=== PATIENT | female | born 1965 | race Caucasian/White ===

== ENCOUNTER 2017-04-13 17:58 | Emergency (ER) | payer BC, OTHER ==
[2017-04-13 18:10] VITALS: TEMP 97.6
[2017-04-13] MEDS ORDERED: ONDANSETRON 4 MG/2 ML VIAL IVP STA (18:16)
[2017-04-13] MEDS ORDERED: SODIUM CHLORIDE 0.9% 1,000 ML IV STA (18:16)
[2017-04-13] MEDS ORDERED: RX INFO: IV CONTRAST WAS GIVEN 1 EACH MISC MISCELLANE PRN (18:16)
[2017-04-13] MEDS ORDERED: HYDROmorphone 1 MG/ML 1 ML SYRINGE IVP STA (18:16)
--- NOTE | 2017-04-13 18:40 | ED ---
General Adult HPI - General Chief complaint: Abdominal Pain Stated complaint: Vomiting Time Seen by Provider: 04/13/17 18:11 Source: patient, RN notes reviewed Mode of arrival: ambulatory Limitations: no limitations - History of Present Illness Initial comments: 51 yo female presents to the ER with cc of left sided abdominal pain x 5 days. Patient has history of diverticulitis. She states this started with abdominal pain is slowly got worse with nausea vomiting. She states that she has not had any diarrhea. She denies any blood in the stool or vomit. There is been no fever chills. Patient states that she did have surgery last time. Happened so she thought that she should be evaluated. They were concerned due to the patient's continued pain so they thought that they should be evaluated. Patient denies any recent fever, chills, shortness of breath, chest pain, back pain, numbness or tingling, dysuria or hematuria, constipation or diarrhea, headaches or visual changes, or any other current symptoms. - Related Data Home Medications Medication Instructions Recorded Confirmed Furosemide [Lasix] 20 mg PO DAILY 04/13/17 04/13/17 Gabapentin [Neurontin] 300 mg PO TID 04/13/17 04/13/17 Ibuprofen [Motrin] 600 mg PO Q8HR PRN 04/13/17 04/13/17 Previous Rx's Medication Instructions Recorded Ciprofloxacin HCl [Cipro] 500 mg PO Q12HR #14 tablet 04/13/17 Ondansetron Odt [Zofran ODT] 4 mg PO Q8HR PRN #20 tab 04/13/17 metroNIDAZOLE [Flagyl] 500 mg PO TID #21 tab 04/13/17 Allergies Allergy/AdvReac Type Severity Reaction Status Date / Time codeine Allergy Unknown Verified 04/13/17 19:05 Iodinated Contrast- Oral and Allergy Dyspnea Verified 04/13/17 20:55 IV Dye levetiracetam [From Keppra] Allergy Unknown Verified 04/13/17 19:05 morphine Allergy Unknown Verified 04/13/17 19:05 tramadol Allergy Unknown Verified 04/13/17 19:05 tape Allergy Unknown Uncoded 04/13/17 18:13 Review of Systems ROS Statement: Those systems with pertinent positive or pertinent negative responses have been documented in the HPI. ROS Other: All systems not noted in ROS Statement are negative. Past Medical History Past Medical History: Asthma, Seizure Disorder Additional Past Medical History / Comment(s): diverticulitis, gilberts syndrome , osteoprosis History of Any Multi-Drug Resistant Organisms: None Reported Past Surgical History: Section, Cholecystectomy, Tonsillectomy Additional Past Surgical History / Comment(s): eyes, diversticulitis Past Psychological History: Depression Smoking Status: Never smoker Past Alcohol Use History: None Reported Past Drug Use History: None Reported General Exam - General Exam Comments Initial Comments: General: The patient is awake and alert, in no distress, and does not appear acutely ill. Eye: Pupils are equal, round and reactive to light, extra-ocular movements are intact; there is normal conjunctiva bilaterally. No signs of icterus. Ears, nose, mouth and throat: There are moist mucous membranes and no oral lesions. Neck: The neck is supple, there is no tenderness. Cardiovascular: There is a regular rate and rhythm. No murmur, rub or gallop is appreciated. Respiratory: Lungs are clear to auscultation, respirations are non-labored, breath sounds are equal. No wheezes, stridor, rales, or rhonchi. Gastrointestinal: Soft, non-distended, tenderness to left side of the abdomen without masses or organomegaly noted. There is no rebound or guarding present. No CVA tenderness. Bowel sounds are unremarkable. Back: There is no tenderness to palpation in the midline. There is no obvious deformity. No rashes noted. Musculoskeletal: Normal ROM, no tenderness, There is no pedal edema. There is no calf tenderness or swelling. Sensation intact. Pulses equal bilaterally 2+. Neurological: CN II-XII intact, There are no obvious motor or sensory deficits. Coordination appears grossly intact. Speech is normal. Skin: Skin is warm and dry and no rashes or lesions are noted. Psychiatric: Cooperative, appropriate mood & affect, normal judgment. Limitations: no limitations Course Vital Signs 04/13/17 04/13/17 04/13/17 18:06 19:09 19:56 Temperature 97.6 F Pulse Rate 105 H 60 60 Respiratory 20 18 18 Rate Blood Pressure 127/89 139/66 150/83 O2 Sat by Pulse 97 96 97 Oximetry 04/13/17 20:36 Temperature Pulse Rate 70 Respiratory 18 Rate Blood Pressure 139/72 O2 Sat by Pulse 98 Oximetry - Reevaluation(s) Reevaluation #1: 04/13/17 19:51 Patient evaluated in the room. At this time there is concern for possible contrast ALLERGY. At this time we did give him Benadryl Solu-Medrol Pepcid. Patient in full sentences with me sitting up. Medical Decision Making - Medical Decision Making 51-year-old female presents emergency Department chief complaint abdominal pain. This and patient's lab work and CAT scan reviewed and negative. This time due to her history we will start her on Cipro as well as nausea medication. We discussed Motrin Tylenol for pain. We did watch her following her ALLERGIC reaction she is doing better. All questions have been answered. - Lab Data Result diagrams: 04/13/17 18:33 04/13/17 18:33 Lab Results 04/13/17 04/13/17 04/13/17 Range/Units 02:32 18:33 18:33 WBC 6.2 (3.8-10.6) k/uL RBC 5.09 (3.80-5.40) m/uL Hgb 14.7 (11.4-16.0) gm/dL Hct 44.0 (34.0-46.0) % MCV 86.5 (80.0-100.0) fL MCH 28.8 (25.0-35.0) pg MCHC 33.3 (31.0-37.0) g/dL RDW 14.4 (11.5-15.5) % Plt Count 231 (150-450) k/uL Neutrophils % 66 % Lymphocytes % 26 % Monocytes % 5 % Eosinophils % 1 % Basophils % 1 % Neutrophils # 4.1 (1.3-7.7) k/uL Lymphocytes # 1.6 (1.0-4.8) k/uL Monocytes # 0.3 (0-1.0) k/uL Eosinophils # 0.0 (0-0.7) k/uL Basophils # 0.0 (0-0.2) k/uL PT (9.0-12.0) sec INR (<1.2) APTT (22.0-30.0) sec Sodium 139 (137-145) mmol/L Potassium 3.7 (3.5-5.1) mmol/L Chloride 101 (98-107) mmol/L Carbon Dioxide 26 (22-30) mmol/L Anion Gap 12 mmol/L BUN 24 H (7-17) mg/dL Creatinine 0.90 (0.52-1.04) mg/dL Est GFR (MDRD) Af Amer >60 (>60 ml/min/1.73 sqM) Est GFR (MDRD) Non-Af >60 (>60 ml/min/1.73 sqM) Glucose 115 H (74-99) mg/dL Plasma Lactic Acid Germán (0.7-2.0) mmol/L Calcium 9.3 (8.4-10.2) mg/dL Total Bilirubin 1.2 (0.2-1.3) mg/dL AST 35 (14-36) U/L ALT 55 H (9-52) U/L Alkaline Phosphatase 104 (38-126) U/L Total Protein 7.8 (6.3-8.2) g/dL Albumin 4.4 (3.5-5.0) g/dL Amylase 51 (30-110) U/L Lipase 52 (23-300) U/L Urine Color Light Yellow Urine Appearance Clear (Clear) Urine pH 6.5 (5.0-8.0) Ur Specific [place] >1.050 H (1.001-1.035) Urine Protein Trace H (Negative) Urine Glucose (UA) Negative (Negative) Urine Ketones 1+ H (Negative) Urine Blood Negative (Negative) Urine Nitrite Negative (Negative) Urine Bilirubin Negative (Negative) Urine Urobilinogen <2.0 (<2.0) mg/dL Ur Leukocyte Esterase Negative (Negative) 04/13/17 04/13/17 Range/Units 18:33 18:33 WBC (3.8-10.6) k/uL RBC (3.80-5.40) m/uL Hgb (11.4-16.0) gm/dL Hct (34.0-46.0) % MCV (80.0-100.0) fL MCH (25.0-35.0) pg MCHC (31.0-37.0) g/dL RDW (11.5-15.5) % Plt Count (150-450) k/uL Neutrophils % % Lymphocytes % % Monocytes % % Eosinophils % % Basophils % % Neutrophils # (1.3-7.7) k/uL Lymphocytes # (1.0-4.8) k/uL Monocytes # (0-1.0) k/uL Eosinophils # (0-0.7) k/uL Basophils # (0-0.2) k/uL PT 9.6 (9.0-12.0) sec INR 1.0 (<1.2) APTT 24.4 (22.0-30.0) sec Sodium (137-145) mmol/L Potassium (3.5-5.1) mmol/L Chloride (98-107) mmol/L Carbon Dioxide (22-30) mmol/L Anion Gap mmol/L BUN (7-17) mg/dL Creatinine (0.52-1.04) mg/dL Est GFR (MDRD) Af Amer (>60 ml/min/1.73 sqM) Est GFR (MDRD) Non-Af (>60 ml/min/1.73 sqM) Glucose (74-99) mg/dL Plasma Lactic Acid Germán 1.0 (0.7-2.0) mmol/L Calcium (8.4-10.2) mg/dL Total Bilirubin (0.2-1.3) mg/dL AST (14-36) U/L ALT (9-52) U/L Alkaline Phosphatase (38-126) U/L Total Protein (6.3-8.2) g/dL Albumin (3.5-5.0) g/dL Amylase (30-110) U/L Lipase (23-300) U/L Urine Color Urine Appearance (Clear) Urine pH (5.0-8.0) Ur Specific [place] (1.001-1.035) Urine Protein (Negative) Urine Glucose (UA) (Negative) Urine Ketones (Negative) Urine Blood (Negative) Urine Nitrite (Negative) Urine Bilirubin (Negative) Urine Urobilinogen (<2.0) mg/dL Ur Leukocyte Esterase (Negative) - Radiology Data Radiology results: report reviewed, image reviewed Disposition Clinical Impression: LLQ abdominal pain Disposition: HOME SELF-CARE Condition: Stable Instructions: Abdominal Pain (ED) Additional Instructions: Please use medication as discussed. Please follow up with family doctor if symptoms have not improved over the next two days. Please return to the emergency room if your symptoms increase or worsen or for any other concerns. Prescriptions: Ciprofloxacin HCl [Cipro] 500 mg PO Q12HR #14 tablet metroNIDAZOLE [Flagyl] 500 mg PO TID #21 tab Ondansetron Odt [Zofran ODT] 4 mg PO Q8HR PRN #20 tab PRN Reason: Nausea Referrals: Brian Giang MD [Primary Care Provider] - 1-2 days Time of Disposition: 21:13
[2017-04-13 18:44] LABS: Basophils % (A) 1 %; Eosinophils % (A) 1 %; HGB 14.7 gm/dL (11.4-16.0); Lymphocytes # (A) 1.6 k/uL (1.0-4.8); Lymphocytes % (A) 26 %; MCH 28.8 pg (25.0-35.0); MCHC 33.3 g/dL (31.0-37.0); MCV 86.5 fL (80.0-100.0); Mean Platelet Volume 8.2; Monocytes # (A) 0.3 k/uL (0-1.0); Monocytes % (A) 5 %; Neutrophils # (A) 4.1 k/uL (1.3-7.7); Neutrophils % (A) 66 %; Platelet Count 231 k/uL (150-450); RBC 5.09 m/uL (3.80-5.40); RDW 14.4 % (11.5-15.5); WBC 6.2 k/uL (3.8-10.6)
[2017-04-13 18:54] LABS: ALT 55 U/L (9-52); AST 35 U/L (14-36); Albumin 4.4 g/dL (3.5-5.0); Alkaline Phosphatase 104 U/L (38-126); Amylase 51 U/L (30-110); Anion Gap 12 mmol/L; Blood Urea Nitrogen 24 mg/dL (7-17); Calcium 9.3 mg/dL (8.4-10.2); Carbon Dioxide 26 mmol/L (22-30); Chloride 101 mmol/L (98-107); Glucose 115 mg/dL (74-99); Lipase 52 U/L (23-300); Potassium 3.7 mmol/L (3.5-5.1); Sodium 139 mmol/L (137-145); Total Bilirubin 1.2 mg/dL (0.2-1.3); Total Protein 7.8 g/dL (6.3-8.2)
[2017-04-13 19:12] VITALS: RESP 18
[2017-04-13 19:34] LABS: Partial Thromboplastin Time 24.4 sec (22.0-30.0); Prothrombin Time 9.6 sec (9.0-12.0)
[2017-04-13] MEDS ORDERED: methylPREDNISolone SOD SUCCI 125 MG/2 ML VIAL IV STA (19:50)
[2017-04-13] MEDS ORDERED: FAMOTIDINE 20 MG/2 ML VIAL IV STA (19:50)
[2017-04-13] MEDS ORDERED: diphenhydrAMINE 50 MG/ML 1 ML VIAL IVP STA (19:50)
--- NOTE | 2017-04-13 19:50 | CT ---
EXAMINATION TYPE: CT abdomen pelvis w con DATE OF EXAM: 04/13/2017 COMPARISON: NONE HISTORY: Generalized pain with vomiting for [address] DLP: 634 mGycm Automated exposure control for dose reduction was used. TECHNIQUE: Helical acquisition of images was performed from the lung bases through the pelvis. CONTRAST: Performed without Oral Contrast and with IV Contrast, patient injected with 100 mL of Omnipaque 300. FINDINGS: Lung bases are clear. There is no pleural effusion. Heart size is normal. Liver spleen pancreas appear normal. There are clips from cholecystectomy. Bile ducts are not dilated . There is no adrenal mass. Kidneys show satisfactory contrast opacification. There is no hydronephrosi s. There is no ascites. There is no retroperitoneal adenopathy. I see no intestinal wall thickening. There are no dilated loops. Bladder distends smoothly. There is no free fluid in the pelvis. I see no bony destructive process. There is no evidence of a pelvic mass. IMPRESSION: NEGATIVE CT SCAN OF THE ABDOMEN AND PELVIS. I DO NOT SEE A CAUSE FOR ABDOMINAL PAIN. APPENDIX APPEARS NORMAL..
[2017-04-13 20:37] VITALS: BP 139/72; PULSE 70
[2017-04-13 20:44] LABS: Appearance,Urine Clear (Clear); Bilirubin,Urine Negative (Negative); Blood,Urine Negative (Negative); Color,Urine Light Yellow; Glucose,Urine (UA) Negative (Negative); Ketones,Urine 1+ (Negative); Leukocyte Esterase,Urine Negative (Negative); Nitrite,Urine Negative (Negative); PH, Urine 6.5 (5.0-8.0); Protein,Urine Trace (Negative); Urobilinogen,Urine <2.0 mg/dL (<2.0)
[2017-04-13 20:47] LABS: Specific Gravity,Urine >1.050 (1.001-1.035)
== END 2017-04-13 21:16 | disposition home or self-care (01) ==
LOC: EC 17:58
DX: R10.32 Left lower quadrant pain (principal); R11.2 Nausea with vomiting, unspecified; G40.909 Epilepsy, unspecified, not intractable, without status epilepticus; F32.9 Major depressive disorder, single episode, unspecified; Z79.899 Other long term (current) drug therapy; Z88.5 Allergy status to narcotic agent; Z91.041 Radiographic dye allergy status; Z91.048 Other nonmedicinal substance allergy status; Z88.8 Allergy status to other drugs, medicaments and biological substances; Z88.6 Allergy status to analgesic agent
CPT/HCPCS: 36415; 80053; 82150; 83605; 83690; 85025; 85610; 85730; 81003; 87040; 87086; 74177; 99284; 96374; 96375 ×4; 96361; J1200; J2930; J2405; J1170; Q9967

== ENCOUNTER 2017-05-25 14:28 | Observation (INO) | payer OTHER ==
[2017-05-25] MEDS ORDERED: IPRATROPIUM-ALBUTEROL 3 ML NEB INHALATION STA (15:03)
--- NOTE | 2017-05-25 15:09 | ED ---
General Adult HPI - General Source: patient Mode of arrival: ambulatory Limitations: no limitations <Jostin Brown - Last Filed: 05/25/17 17:05> <Lane Castañeda - Last Filed: 05/25/17 17:51> - General Chief complaint: Shortness of Breath Stated complaint: congestion/SOB Time Seen by Provider: 05/25/17 14:57 - History of Present Illness Initial comments: This is a 51 year old female who presents with congestion, cough and shortness of breath which began 2 weeks ago and is gradually worsening. She has a history of asthma that is not under any current treatment. The patient states she has been taking over the counter Tylenol Cold medicine, which provided no relief. She denies fevers, nausea, vomiting, diarrhea. (Jostin Brown) - Related Data Home Medications Medication Instructions Recorded Confirmed D-Methorphan/PE/Acetaminophen 1 each PO Q6H PRN 05/25/17 05/25/17 [Tylenol Cold Max Day Caplet] Allergies Allergy/AdvReac Type Severity Reaction Status Date / Time codeine Allergy Unknown Verified 05/25/17 15:14 Iodinated Contrast- Oral and Allergy Dyspnea Verified 05/25/17 15:14 IV Dye levetiracetam [From Kera] Allergy Unknown Verified 05/25/17 15:14 morphine Allergy Unknown Verified 05/25/17 15:14 tramadol Allergy Unknown Verified 05/25/17 15:14 tape Allergy Unknown Uncoded 05/25/17 14:34 Review of Systems ROS Other: All systems not noted in ROS Statement are negative. <Jostin Brown - Last Filed: 05/25/17 17:05> ROS Other: All systems not noted in ROS Statement are negative. <Lane Castañeda - Last Filed: 05/25/17 17:51> ROS Statement: Those systems with pertinent positive or pertinent negative responses have been documented in the HPI. Past Medical History Past Medical History: Asthma, Seizure Disorder Additional Past Medical History / Comment(s): diverticulitis, gilberts syndrome , osteoprosis History of Any Multi-Drug Resistant Organisms: None Reported Past Surgical History: Section, Cholecystectomy, Tonsillectomy Additional Past Surgical History / Comment(s): eyes, diversticulitis Past Psychological History: Depression Smoking Status: Never smoker Past Alcohol Use History: None Reported Past Drug Use History: None Reported <Jostin Brown - Last Filed: 05/25/17 17:05> General Exam Limitations: no limitations General appearance: alert, in no apparent distress Head exam: Present: atraumatic, normocephalic, normal inspection Eye exam: Present: normal appearance, PERRL, EOMI. Absent: scleral icterus, conjunctival injection, periorbital swelling Respiratory exam: Present: wheezes, rhonchi, other (expiratory wheezes and rhonchi auscultated bilaterally) Cardiovascular Exam: Present: regular rate, normal rhythm, normal heart sounds. Absent: systolic murmur, diastolic murmur, rubs, gallop, clicks GI/Abdominal exam: Present: soft, normal bowel sounds. Absent: distended, tenderness, guarding, rebound, rigid Back exam: Present: normal inspection Neurological exam: Present: alert, oriented X3, CN II-XII intact Psychiatric exam: Present: normal affect, normal mood Skin exam: Present: warm, dry, intact, normal color. Absent: rash <Jostin Brown - Last Filed: 05/25/17 17:05> Course <Jostin Brown - Last Filed: 05/25/17 17:05> <Lane Castañeda - Last Filed: 05/25/17 17:51> Vital Signs 05/25/17 05/25/17 05/25/17 14:32 15:37 15:50 Temperature 98.0 F Pulse Rate 60 60 64 Respiratory 20 Rate Blood Pressure 153/94 O2 Sat by Pulse 99 Oximetry 05/25/17 05/25/17 05/25/17 16:43 16:57 17:10 Temperature Pulse Rate 68 72 76 Respiratory 28 H Rate Blood Pressure 162/85 O2 Sat by Pulse 98 Oximetry - Reevaluation(s) Reevaluation #1: 05/25/17 17:50 Patient reevaluated by myself, Dr. Castañeda. Patient resting comfortably in bed. Patient has continued decreased air exchange and wheezing. Patient was updated on results and plan. Case was discussed in detail with Dr. Ludwig who did evaluate the patient and will admit for hospital call. Patient was updated. ( Lane Castañeda) Medical Decision Making - Lab Data Result diagrams: 05/25/17 16:08 05/25/17 16:08 <Jostin Brown - Last Filed: 05/25/17 17:05> - Lab Data Result diagrams: 05/25/17 16:08 05/25/17 16:08 <Lane Casatñeda - Last Filed: 05/25/17 17:51> - Medical Decision Making 51-year-old female presented for URI symptoms, shortness of breath. Patient's lab work, x-ray unremarkable patient's had multiple no denies treatments here in emergency department with no relief of her symptoms. She has continuation of wheezing and shortness of breath. Patient be admitted for IV steroids, every 2-4 hours breathing treatments. (Jostin Brown) - Lab Data Lab Results 05/25/17 05/25/17 05/25/17 Range/Units 16:08 16:08 16:08 WBC 4.5 (3.8-10.6) k/uL RBC 5.03 (3.80-5.40) m/uL Hgb 14.8 (11.4-16.0) gm/dL Hct 45.9 (34.0-46.0) % MCV 91.2 (80.0-100.0) fL MCH 29.5 (25.0-35.0) pg MCHC 32.3 (31.0-37.0) g/dL RDW 13.2 (11.5-15.5) % Plt Count 197 (150-450) k/uL Neutrophils % (Manual) 34 % Band Neutrophils % 1 % Lymphocytes % (Manual) 59 % Monocytes % (Manual) 3 % Eosinophils % (Manual) 3 % Neutrophils # (Manual) 1.50 (1.3-7.7) k/uL Lymphocytes # (Manual) 2.66 (1.0-4.8) k/uL Monocytes # (Manual) 0.14 (0-1.0) k/uL Eosinophils # (Manual) 0.14 (0-0.7) k/uL Nucleated RBCs 0 (0-0) /100 WBC Manual Slide Review Performed Sodium 143 (137-145) mmol/L Potassium 3.8 (3.5-5.1) mmol/L Chloride 107 (98-107) mmol/L Carbon Dioxide 23 (22-30) mmol/L Anion Gap 13 mmol/L BUN 17 (7-17) mg/dL Creatinine 0.80 (0.52-1.04) mg/dL Est GFR (MDRD) Af Amer >60 (>60 ml/min/1.73 sqM) Est GFR (MDRD) Non-Af >60 (>60 ml/min/1.73 sqM) Glucose 95 (74-99) mg/dL Calcium 9.5 (8.4-10.2) mg/dL Magnesium 2.2 (1.6-2.3) mg/dL Total Bilirubin 1.3 (0.2-1.3) mg/dL AST 37 H (14-36) U/L ALT 40 (9-52) U/L Alkaline Phosphatase 93 (38-126) U/L Total Protein 7.4 (6.3-8.2) g/dL Albumin 4.3 (3.5-5.0) g/dL Influenza Type A RNA Not Detected (Not Detectd) Influenza Type B (PCR) Not Detected (Not Detectd) Disposition <Jostin Brown - Last Filed: 05/25/17 17:05> <Lane Castañeda - Last Filed: 05/25/17 17:51> Clinical Impression: Acute asthma exacerbation, URI (upper respiratory infection) Disposition: ADMITTED IP TO THIS HOSP Condition: Fair Referrals: Brian Giang MD [Primary Care Provider] - 1-2 days
--- NOTE | 2017-05-25 15:42 | XR ---
EXAMINATION TYPE: XR chest 2V DATE OF EXAM: 05/25/2017 COMPARISON: NONE INDICATION: Cough, pain, short of breath x2 weeks TECHNIQUE: Frontal and lateral views of the chest are obtained. FINDINGS: The heart size is normal. The pulmonary vasculature is normal. The lungs are clear. IMPRESSION: 1. No acute pulmonary process.
[2017-05-25] MEDS ORDERED: methylPREDNISolone SOD SUCCI 125 MG/2 ML VIAL IV STA (15:56)
[2017-05-25 16:18] LABS: HCT 45.9 % (34.0-46.0); HGB 14.8 gm/dL (11.4-16.0); MCH 29.5 pg (25.0-35.0); MCHC 32.3 g/dL (31.0-37.0); MCV 91.2 fL (80.0-100.0); Mean Platelet Volume 7.3; Platelet Count 197 k/uL (150-450); RBC 5.03 m/uL (3.80-5.40); RDW 13.2 % (11.5-15.5); WBC 4.5 k/uL (3.8-10.6)
[2017-05-25] MEDS ORDERED: ALBUTEROL NEBULIZED 2.5 MG/3 ML INHALATION STA (16:25)
[2017-05-25 16:30] LABS: ALT 40 U/L (9-52); AST 37 U/L (14-36); Albumin 4.3 g/dL (3.5-5.0); Alkaline Phosphatase 93 U/L (38-126); Anion Gap 13 mmol/L; Blood Urea Nitrogen 17 mg/dL (7-17); Calcium 9.5 mg/dL (8.4-10.2); Carbon Dioxide 23 mmol/L (22-30); Chloride 107 mmol/L (98-107); Glucose 95 mg/dL (74-99); Magnesium 2.2 mg/dL (1.6-2.3); Potassium 3.8 mmol/L (3.5-5.1); Sodium 143 mmol/L (137-145); Total Bilirubin 1.3 mg/dL (0.2-1.3); Total Protein 7.4 g/dL (6.3-8.2)
[2017-05-25 16:35] LABS: Band Neutrophils % 1 %; Eosinophils # (M) 0.14 k/uL (0-0.7); Lymphocytes # (M) 2.66 k/uL (1.0-4.8); Monocytes # (M) 0.14 k/uL (0-1.0); Neutrophils % (M) 34 %; Nucleated Red Blood Cells 0 /100 WBC (0-0); Total Cells Counted 100
[2017-05-25] MEDS ORDERED: ACETAMINOPHEN TAB 325 MG TAB PO PRN (17:07)
[2017-05-25] MEDS: IPRATROPIUM-ALBUTEROL 3 ML NEB INHALATION SCH (19:40)
[2017-05-25 20:04] VITALS: BMI 27.7
[2017-05-25] MEDS: methylPREDNISolone SOD SUCCI 125 MG/2 ML VIAL IV SCH (21:39)
[2017-05-25] MEDS ORDERED: TEMAZEPAM 15 MG CAP PO PRN (22:38)
[2017-05-26] MEDS: IPRATROPIUM-ALBUTEROL 3 ML NEB INHALATION SCH ×4 (00:02→12:20)
[2017-05-26] MEDS: methylPREDNISolone SOD SUCCI 125 MG/2 ML VIAL IV SCH ×3 (01:01→12:16)
[2017-05-26 06:15] VITALS: BP 121/90; TEMP 97.1
[2017-05-26 06:25] LABS: Glucose,Whole Blood 128 mg/dL (75-99)
[2017-05-26 09:14] VITALS: RESP 14
[2017-05-26] MEDS ORDERED: LEVOFLOXACIN 500MG-D5W PMX 500 MG in DEXTROSE/WATER 1 100ML.BAG IVPB SCH (11:00)
[2017-05-26 12:16] LABS: Glucose,Whole Blood 188 mg/dL (75-99)
[2017-05-26] MEDS ORDERED: INSULIN ASPART 100 UNIT/ML 1 ML 10 ML VIAL SQ SCH (12:30)
[2017-05-26 13:41] VITALS: PULSE 84
[2017-05-26] MEDS ORDERED: PNEUMOCOCCAL VACC-PNEUMOVAX 23 25 MCG/0.5 ML VIAL IM ONE (14:14)
[2017-05-26 15:44] LABS: Hemoglobin A1C 5.1 % (4.0-6.0)
[2017-05-26] MEDS ORDERED: SYMBICORT 160-4.5 MCG INHALER INHALATION SCH (20:00)
[2017-05-26] MEDS ORDERED: HEPARIN SODIUM,PORCINE 5,000 UNIT/ML 1 ML VIAL SQ SCH (21:00)
--- NOTE | 2017-05-27 05:21 | HP ---
HISTORY AND PHYSICAL DATE OF SERVICE: 05/25/2017 CHIEF COMPLAINT: Shortness of breath. HISTORY OF PRESENT ILLNESS: This 51-year-old woman with a past medical history of multiple medical problems including asthma, fibromyalgia, seizure disorder, diverticulitis, Gilbert's syndrome being followed by Dr. Morley in the outpatient setting complaining of cough and congestion for the last 2 weeks. Patient had increasing worsening of the asthma and patient came to [facility] and admitted for further evaluation and treatment. There is no history of fever or rigors. There is no headache, loss of consciousness, seizures. PAST MEDICAL HISTORY: Asthma, fibromyalgia, DJD, seizure disorder, diverticulitis, Gilbert's syndrome. MEDICATIONS: Medications prior to admission include: 1. Tylenol p.r.n. 2. Singulair 10 mg q.h.s. 3. Symbicort 160/4.5 b.i.d. 4. Albuterol p.r.n. ALLERGIES: Allergies are CODEINE, IODINATED CONTRAST, KEPPRA, MORPHINE, ULTRAM, and TAPE. FAMILY HISTORY: No history of cancer. Suicide in the family. SOCIAL HISTORY: No history of smoking. No history of alcohol intake. REVIEW OF SYSTEMS: ENT: No diminished hearing or diminished vision. CARDIOVASCULAR SYSTEM: No angina. RESPIRATORY SYSTEM: No cough. GI: No nausea. : No dysuria. NERVOUS SYSTEM: No numbness or weakness. ALLERGY/IMMUNOLOGICAL: Asthma, hayfever. MUSCULOSKELETAL: As mentioned earlier. HEMATOLOGY/ONCOLOGY: No history of anemia. ENDOCRINE: No history of diabetes or hypothyroidism. CONSTITUTIONAL: As mentioned earlier. DERMATOLOGY: Negative. RHEUMATOLOGY: Negative. PSYCHIATRY: As mentioned earlier. PHYSICAL EXAMINATION: The patient is alert and oriented x3. Pulse is 76, blood pressure 121/90, respirations 16, temperature 97.1, pulse ox 92% on room air. HEENT: Conjunctivae normal. NECK: No jugular venous distention. CARDIOVASCULAR: S1 and S2 muffled. RESPIRATORY: Breath sounds diminished at the bases. Scattered rhonchi and crackles. ABDOMEN: Soft, nontender. No mass palpable. LEGS: No edema, no swelling. NERVOUS SYSTEM: Higher functions as mentioned earlier. Moves all 4 limbs. No focal deficits. LYMPHATICS: No lymphadenopathy of the neck, axillae or groin. SKIN: No ulcer, rash or bleeding. LABS: CBC within normal limits. BMP within normal limits. ASSESSMENT: 1. Acute bronchial asthma acute exacerbation with acute purulent tracheobronchitis. 2. History of recent flu. 3. History of fibromyalgia. 4. Degenerative joint disease. 5. Seizure disorder. 6. History of diverticulitis. RECOMMENDATIONS AND DISCUSSION: This 51-year-old woman who presented with multiple complex medical issues, will monitor the patient closely. Will recommend bronchodilators, steroids and empiric antibiotics and closely follow. Guarded prognosis because of multiple complex medical issues. Further recommendations to follow. MMODL / IJN: [id number] /
[2017-05-27] MEDS ORDERED: PANTOPRAZOLE 40 MG TABLET PO SCH (07:30)
--- NOTE | 2017-05-27 08:07 | DS ---
DISCHARGE SUMMARY DATE OF SERVICE: 05/26/2017. FINAL DIAGNOSES: 1. Asthma acute exacerbation with acute purulent tracheobronchitis. 2. Bronchial asthma, chronic intermittent. 3. Fibromyalgia. 4. Degenerative joint disease. 5. Seizure disorder. 6. History of diverticulitis. 7. History of recent flu. 9. History of seizure disorder. DISCHARGE DISPOSITION: The patient is being discharged in stable condition with guarded prognosis. HISTORY OF PRESENT ILLNESS: The patient is a 51 -year-old female with past medical history of multiple medical problems admitted with features of acute purulent tracheobronchitis with bronchial asthma acute exacerbation, treated with bronchodilators. Patient improved significantly. PHYSICAL EXAMINATION: On exam, vital signs stable. Cardiac system: S1, S2. Respiratory: A few rhonchi. DISCHARGE ADVICE AND MEDICATIONS: 1. Discharge diet is cardiac diet. 2. Activity limited until followup. 3. Follow up with Dr. Morley as advised. MEDICATIONS ARE: As follows: 1. Albuterol 2 puffs q.i.d. and p.r.n. 2. Symbicort 160/4.5 2 puffs b.i.d. 3. Levaquin 500 mg p.o. daily for 5 days. 4. Singular 10 mg q.h.s. 5. Prednisone taper that will be 40 mg daily for 3 days, 30 for 3 days, 20 for 3 days, 10 for 3 days and stop. Once again, the patient is being discharged in stable condition with guarded prognosis. MMODL / IJN: [id number] / KEYLA
[2017-05-27] MEDS ORDERED: LEVOFLOXACIN 500 MG TAB PO SCH (09:00)
== END 2017-05-26 16:10 | disposition home or self-care (01) ==
LOC: EC 14:28 → 4MS4W 17:07
PROVIDERS: ADMIT Hospitalist; ATTEND Hospitalist
DX: J45.21 Mild intermittent asthma with (acute) exacerbation (principal); J20.9 Acute bronchitis, unspecified; G40.909 Epilepsy, unspecified, not intractable, without status epilepticus; E80.4 Gilbert syndrome; F32.9 Major depressive disorder, single episode, unspecified; M79.7 Fibromyalgia; M19.90 Unspecified osteoarthritis, unspecified site; Z87.19 Personal history of other diseases of the digestive system; Z23 Encounter for immunization; Z88.5 Allergy status to narcotic agent; Z91.041 Radiographic dye allergy status; Z88.8 Allergy status to other drugs, medicaments and biological substances; Z91.048 Other nonmedicinal substance allergy status
CPT/HCPCS: 96375 ×2; 99285 ×2; 96376; 96365; 36415; 94640 ×4; 80053; 83735; 85025; 87502; 83036; 71046; 90732; G0378 ×2; G0009; J2930 ×2; J1956

== ENCOUNTER 2017-08-12 18:48 | Inpatient (IN) | payer BC, OTHER ==
[2017-08-12] MEDS ORDERED: ASPIRIN 81 MG PO STA (19:20)
[2017-08-12] MEDS ORDERED: SODIUM CHLORIDE 0.9% 1,000 ML IV ONE (19:20)
--- NOTE | 2017-08-12 19:24 | ED ---
General Adult HPI - General Chief complaint: Neuro Symptoms/Deficit Stated complaint: Poss stroke Time Seen by Provider: 08/12/17 19:19 Source: patient Mode of arrival: ambulatory Limitations: no limitations - History of Present Illness Initial comments: Patient is a 51-year-old female presents with a chief complaint of dizziness, left-sided facial droop, slurred speech, and disequilibrium. Her symptoms started yesterday morning. The patient cannot identify any inciting incidences. She denies any previous history of the same. There are no aggravating or alleviating factors. Timing is constant. The patient states that since yesterday, she believes her symptoms have improved but are not gone. - Related Data Home Medications Medication Instructions Recorded Confirmed Albuterol Inhaler [Ventolin Hfa 2 puff INHALATION RT-QID 08/12/17 08/12/17 Inhaler] Ergocalciferol (Vitamin D2) 50,000 unit PO NOBLE 08/12/17 08/12/17 [Vitamin D2] Fluocinonide 0.05% Solution 1 applic TOPICAL DAILY PRN 08/12/17 08/12/17 Gabapentin [Neurontin] 300 mg PO BID 08/12/17 08/12/17 Previous Rx's Medication Instructions Recorded Budesonide-Formot 160-4.5 Mcg 2 puff INHALATION RT-BID #1 inh 05/26/17 [Symbicort 160-4.5 Mcg Inhaler] Montelukast Sodium [Singulair] 10 mg PO HS #30 tab 05/26/17 Aspirin 325 mg PO DAILY #30 tab 08/18/17 Allergies Allergy/AdvReac Type Severity Reaction Status Date / Time codeine Allergy Unknown Verified 08/12/17 19:56 Iodinated Contrast- Oral and Allergy Dyspnea Verified 08/12/17 19:56 IV Dye levetiracetam [From [facility]] Allergy Unknown Verified 08/12/17 19:56 morphine Allergy Unknown Verified 08/12/17 19:56 tramadol Allergy Unknown Verified 08/12/17 19:56 heparin AdvReac Swelling Verified 08/12/17 19:56 tape Allergy Unknown Uncoded 08/12/17 18:55 Review of Systems ROS Statement: Those systems with pertinent positive or pertinent negative responses have been documented in the HPI. ROS Other: All systems not noted in ROS Statement are negative. Neurological: Reports: weakness, numbness Past Medical History Past Medical History: Asthma, Fibromyalgia, Musculoskeletal Disorder, Seizure Disorder Additional Past Medical History / Comment(s): Diverticulitis, Gilbert's syndrome , Osteoprosis, Seizures > 4 years ago, wears contacts, lumbar DDD/DJD History of Any Multi-Drug Resistant Organisms: None Reported Past Surgical History: Section, Cholecystectomy, Hysterectomy, Tonsillectomy Additional Past Surgical History / Comment(s): Partial hysterectomy Past Psychological History: Depression Smoking Status: Never smoker Past Alcohol Use History: None Reported Past Drug Use History: None Reported - Past Family History Father Additional Family Medical History / Comment(s): Committed suicide. Cancer, DM, heart disease, depression on his side of the family. Most of father's side of a type of cancer. Mother Family Medical History: Cancer Additional Family Medical History / Comment(s): Skin cancer, heart problems, depression, DM. Committed suicide. Mother's sister (aunt) of brain cancer. Sister(s) Family Medical History: Cancer, Liver Disease, Renal Disease Additional Family Medical History / Comment(s): of cancer. Another sister has liver failure. Another sister has heart problems. "Baby sister" has osteoporosis. Little sister has kidney problems. Brother(s) Family Medical History: Cancer Additional Family Medical History / Comment(s): Older brother committed suicide/ had skin cancer. Little brother has heart problems w/ 2 surgeries/depression/ mental issues. General Exam Limitations: no limitations General appearance: alert, in no apparent distress Head exam: Present: atraumatic, normocephalic Eye exam: Present: normal appearance, PERRL, EOMI Pupils: Present: normal accommodation ENT exam: Present: normal exam, mucous membranes moist Neck exam: Present: normal inspection, full ROM. Absent: tenderness, meningismus Respiratory exam: Present: normal lung sounds bilaterally. Absent: respiratory distress, wheezes Cardiovascular Exam: Present: regular rate, normal rhythm GI/Abdominal exam: Present: soft. Absent: distended, tenderness Rectal exam: Present: deferred Extremities exam: Present: normal inspection Back exam: Present: normal inspection Neurological exam: Present: alert, oriented X3, abnormal gait, other (Patient has mild left-sided facial droop and decreased sensation on the left side of her face. Neurologic exam is otherwise intact, patient is able to walk and balance however she states she feels unsteady. Finger to nose testing and rapid alternating motion are within normal limits.) Psychiatric exam: Present: normal affect, normal mood Skin exam: Present: warm, dry, intact Course Vital Signs 08/12/17 08/12/17 08/12/17 18:49 19:26 20:55 Temperature 98.2 F 97.1 F L Pulse Rate 69 72 69 Pulse Rate [ Pulse Oximetery ] Respiratory 16 14 14 Rate Blood Pressure 156/77 159/86 159/86 Blood Pressure [Right Arm] O2 Sat by Pulse 97 98 97 Oximetry 08/12/17 08/13/17 08/13/17 22:06 00:00 04:00 Temperature 97.3 F L Pulse Rate 56 L Pulse Rate [ 71 61 Pulse Oximetery ] Respiratory 14 16 16 Rate Blood Pressure 154/65 Blood Pressure 136/82 132/61 [Right Arm] O2 Sat by Pulse 99 95 98 Oximetry 08/13/17 08/13/17 08:00 12:00 Temperature 97.4 F L 97 F L Pulse Rate Pulse Rate [ 69 67 Pulse Oximetery ] Respiratory 18 18 Rate Blood Pressure Blood Pressure 134/60 135/64 [Right Arm] O2 Sat by Pulse 97 98 Oximetry Medical Decision Making - Medical Decision Making Patient presents with a chief complaint of left-sided facial numbness and facial droop, slurred speech, disequilibrium. On initial evaluation, vital signs are stable, patient is in no acute distress. Exam is concerning for CVA. They will be evaluated basic cardiac labs. She was sent for computed tomography scan of the head without contrast. We'll hold on CTA as patient has a contrast ALLERGY. She was given aspirin on arrival. This time, patient is not a TPA candidate as his bit more than 24 hours since onset of symptoms. She states that they have somewhat improved since onset. EKG performed at 1936 shows normal sinus rhythm with a rate of 65 bpm. EKG is otherwise unremarkable. NIH stroke scale is currently 2 8:39 PM Lab evaluation this patient is thus far unremarkable. Computed tomography scan of the head is negative for intracranial hemorrhage, mass, or midline shift. I discussed this case with Angeline Turner who says admission for further stroke workup under Dr. Ortega. Patient was informed of results thus far, and care plan. The patient is agreeable. - Lab Data Result diagrams: 08/17/17 06:27 08/17/17 06:27 Lab Results 08/12/17 08/12/17 08/12/17 Range/Units 19:50 19:50 19:50 WBC 8.2 (3.8-10.6) k/uL RBC 4.33 (3.80-5.40) m/uL Hgb 12.7 (11.4-16.0) gm/dL Hct 36.9 (34.0-46.0) % MCV 85.2 (80.0-100.0) fL MCH 29.2 (25.0-35.0) pg MCHC 34.3 (31.0-37.0) g/dL RDW 13.3 (11.5-15.5) % Plt Count 253 (150-450) k/uL Neutrophils % 68 % Lymphocytes % 25 % Monocytes % 4 % Eosinophils % 2 % Basophils % 0 % Neutrophils # 5.6 (1.3-7.7) k/uL Lymphocytes # 2.0 (1.0-4.8) k/uL Monocytes # 0.3 (0-1.0) k/uL Eosinophils # 0.2 (0-0.7) k/uL Basophils # 0.0 (0-0.2) k/uL Sodium 138 (137-145) mmol/L Potassium 3.9 (3.5-5.1) mmol/L Chloride 103 (98-107) mmol/L Carbon Dioxide 25 (22-30) mmol/L Anion Gap 10 mmol/L BUN 21 H (7-17) mg/dL Creatinine 0.87 (0.52-1.04) mg/dL Est GFR (CKD-EPI)AfAm 89 (>60 ml/min/1.73 sqM) Est GFR (CKD-EPI)NonAf 78 (>60 ml/min/1.73 sqM) Glucose 89 (74-99) mg/dL Estimated Ave Glu mg/dL 103 Hemoglobin A1c 5.2 (4.0-6.0) % Calcium 9.5 (8.4-10.2) mg/dL Troponin I (0.000-0.034) ng/mL NT-Pro-B Natriuret Pep pg/mL 08/12/17 08/12/17 Range/Units 19:50 19:50 WBC (3.8-10.6) k/uL RBC (3.80-5.40) m/uL Hgb (11.4-16.0) gm/dL Hct (34.0-46.0) % MCV (80.0-100.0) fL MCH (25.0-35.0) pg MCHC (31.0-37.0) g/dL RDW (11.5-15.5) % Plt Count (150-450) k/uL Neutrophils % % Lymphocytes % % Monocytes % % Eosinophils % % Basophils % % Neutrophils # (1.3-7.7) k/uL Lymphocytes # (1.0-4.8) k/uL Monocytes # (0-1.0) k/uL Eosinophils # (0-0.7) k/uL Basophils # (0-0.2) k/uL Sodium (137-145) mmol/L Potassium (3.5-5.1) mmol/L Chloride (98-107) mmol/L Carbon Dioxide (22-30) mmol/L Anion Gap mmol/L BUN (7-17) mg/dL Creatinine (0.52-1.04) mg/dL Est GFR (CKD-EPI)AfAm (>60 ml/min/1.73 sqM) Est GFR (CKD-EPI)NonAf (>60 ml/min/1.73 sqM) Glucose (74-99) mg/dL Estimated Ave Glu mg/dL Hemoglobin A1c (4.0-6.0) % Calcium (8.4-10.2) mg/dL Troponin I <0.012 (0.000-0.034) ng/mL NT-Pro-B Natriuret Pep 46 pg/mL Disposition Clinical Impression: Cerebrovascular accident Disposition: ADMITTED IP TO THIS HOSP Condition: Good Is patient prescribed a controlled substance at d/c from ED?: No Decision to Admit Reason: Admit from EC - Out of Hospital Transfer - Req. Specs Out of Hospital Transfer - Requested Specifics: Telemetry Unit
[2017-08-12 19:58] LABS: Basophils % (A) 0 %; Eosinophils # (A) 0.2 k/uL (0-0.7); Eosinophils % (A) 2 %; HCT 36.9 % (34.0-46.0); HGB 12.7 gm/dL (11.4-16.0); Lymphocytes % (A) 25 %; MCH 29.2 pg (25.0-35.0); MCHC 34.3 g/dL (31.0-37.0); MCV 85.2 fL (80.0-100.0); Mean Platelet Volume 7.9; Monocytes # (A) 0.3 k/uL (0-1.0); Monocytes % (A) 4 %; Neutrophils # (A) 5.6 k/uL (1.3-7.7); Neutrophils % (A) 68 %; Platelet Count 253 k/uL (150-450); RBC 4.33 m/uL (3.80-5.40); RDW 13.3 % (11.5-15.5); WBC 8.2 k/uL (3.8-10.6)
[2017-08-12 20:07] LABS: Calcium 9.5 mg/dL (8.4-10.2); Potassium 3.9 mmol/L (3.5-5.1)
--- NOTE | 2017-08-12 20:12 | CT ---
EXAMINATION TYPE: CT brain wo con DATE OF EXAM: 08/12/2017 COMPARISON: NONE HISTORY: Dizziness, TOVAR and slurred speech CT DLP: 1052 mGycm Automated exposure control for dose reduction was used. FINDINGS: There is no acute intracranial hemorrhage, mass effect, or midline shift identified. The ventricles and sulci are within normal limits in size. The globes are intact and the visualized sinuses are marian ar. IMPRESSION: No acute intracranial hemorrhage, mass effect, or midline shift is seen.
[2017-08-12] MEDS ORDERED: NALOXONE 0.4 MG/ML 1 ML VIAL IV PRN (20:54)
[2017-08-13 00:36] LABS: Hemoglobin A1C 5.2 % (4.0-6.0)
[2017-08-13 07:23] LABS: Basophils % (A) 1 %; Eosinophils # (A) 0.1 k/uL (0-0.7); Eosinophils % (A) 2 %; HCT 34.4 % (34.0-46.0); HGB 11.8 gm/dL (11.4-16.0); Lymphocytes # (A) 1.6 k/uL (1.0-4.8); Lymphocytes % (A) 27 %; MCH 29.4 pg (25.0-35.0); MCHC 34.2 g/dL (31.0-37.0); MCV 86.1 fL (80.0-100.0); Monocytes # (A) 0.3 k/uL (0-1.0); Monocytes % (A) 5 %; Neutrophils # (A) 3.6 k/uL (1.3-7.7); Neutrophils % (A) 63 %; Platelet Count 203 k/uL (150-450); RDW 13.2 % (11.5-15.5); WBC 5.7 k/uL (3.8-10.6)
[2017-08-13 07:30] LABS: Anion Gap 10 mmol/L; Blood Urea Nitrogen 19 mg/dL (7-17); Calcium 8.8 mg/dL (8.4-10.2); Carbon Dioxide 24 mmol/L (22-30); Chloride 106 mmol/L (98-107); Glucose 87 mg/dL (74-99); Potassium 3.8 mmol/L (3.5-5.1); Sodium 140 mmol/L (137-145)
[2017-08-13] MEDS: IBUPROFEN 600 MG TAB PO PRN (14:59)
[2017-08-13] MEDS: GABAPENTIN 300 MG CAP PO SCH ×2 (16:03→20:49)
[2017-08-13 16:34] LABS: Glucose,Whole Blood 102 mg/dL (75-99)
[2017-08-13 20:38] LABS: Glucose,Whole Blood 132 mg/dL (75-99)
[2017-08-13] MEDS: MONTELUKAST 10 MG TAB PO SCH (20:49)
--- NOTE | 2017-08-13 21:59 | P.HPIM ---
History of Present Illness H&P Date: 08/13/17 Chief Complaint: Slurred speech and unsteady gait Patient is a 51-year-old female with a known history of asthma fibromyalgia and seizure disorder came to the hospital with complaints of slurred speech and left facial droop along with dizziness. Patient says that her symptoms started on Friday and the patient was not feeling good. Patient went to see his primary care physician and was recommended to go to ER. Patient has been tripping and stumbling along with slurred speech. Denied any previous history of CVA/TIA. No complaints of chest pain or shortness of breath. 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 Patient also says that sometimes her heart racing of fast and night. CT head showed no acute intracranial process EKG showed normal sinus with sinus arrhythmia Review of Systems Constitutional: Patient denies any fever or chills . No generalized weakness or weight loss. Abdomen: Patient denied nausea vomiting and diarrhea and abdominal pain. Cardiovascular: Patient denies any chest pain or short of breath no palpitations. Respiratory: patient denied any cough is from production. No shortness of breath Neurologic: Patient does have left-sided facial numbness and bilateral lower activity weakness and pain. Unsteady gait and dizziness Musculoskeletal: Patient denies any complaints of joint swelling or deformity. Skin: Negative Psychiatric: Negative Endocrine: No heat or cold intolerance. No recent weight gain. Genitourinary: No dysuria or hematuria. All other 14 point ROS negative except the above Past Medical History Past Medical History: Asthma, Fibromyalgia, Musculoskeletal Disorder, Seizure Disorder Additional Past Medical History / Comment(s): Diverticulitis, Gilbert's syndrome , Osteoprosis, Seizures > 4 years ago, wears contacts, lumbar DDD/DJD History of Any Multi-Drug Resistant Organisms: None Reported Past Surgical History: Section, Cholecystectomy, Hysterectomy, Tonsillectomy Additional Past Surgical History / Comment(s): Partial hysterectomy Past Anesthesia/Blood Transfusion Reactions: No Reported Reaction Past Psychological History: Depression Additional Psychological History / Comment(s): Seasonal depression. Smoking Status: Never smoker Past Alcohol Use History: None Reported Past Drug Use History: None Reported - Past Family History Father Additional Family Medical History / Comment(s): Committed suicide. Cancer, DM, heart disease, depression on his side of the family. Most of father's side of a type of cancer. Mother Family Medical History: Cancer Additional Family Medical History / Comment(s): Skin cancer, heart problems, depression, DM. Committed suicide. Mother's sister (aunt) of brain cancer. Sister(s) Family Medical History: Cancer, Liver Disease, Renal Disease Additional Family Medical History / Comment(s): of cancer. Another sister has liver failure. Another sister has heart problems. "Baby sister" has osteoporosis. Little sister has kidney problems. Brother(s) Family Medical History: Cancer Additional Family Medical History / Comment(s): Older brother committed suicide/ had skin cancer. Little brother has heart problems w/ 2 surgeries/depression/ mental issues. Medications and Allergies Home Medications Medication Instructions Recorded Confirmed Type Budesonide-Formot 160-4.5 Mcg 2 puff INHALATION RT-BID #1 inh 05/26/17 08/12/17 Rx [Symbicort 160-4.5 Mcg Inhaler] Montelukast Sodium [Singulair] 10 mg PO HS #30 tab 05/26/17 08/12/17 Rx Albuterol Inhaler [Ventolin Hfa 2 puff INHALATION RT-QID 08/12/17 08/12/17 History Inhaler] Ergocalciferol (Vitamin D2) 50,000 unit PO NOBLE 08/12/17 08/12/17 History [Vitamin D2] Fluocinonide 0.05% Solution 1 applic TOPICAL DAILY PRN 08/12/17 08/12/17 History Furosemide [Lasix] 20 mg PO HS 08/12/17 08/12/17 History Gabapentin [Neurontin] 300 mg PO BID 08/12/17 08/12/17 History Ibuprofen [Motrin] 600 mg PO Q8HR PRN 08/12/17 08/12/17 History Allergies Allergy/AdvReac Type Severity Reaction Status Date / Time codeine Allergy Unknown Verified 08/12/17 19:56 Iodinated Contrast- Oral and Allergy Dyspnea Verified 08/12/17 19:56 IV Dye levetiracetam [From [facility]] Allergy Unknown Verified 08/12/17 19:56 morphine Allergy Unknown Verified 08/12/17 19:56 tramadol Allergy Unknown Verified 08/12/17 19:56 heparin AdvReac Swelling Verified 08/12/17 19:56 tape Allergy Unknown Uncoded 08/12/17 18:55 Physical Exam Vitals: Vital Signs Temp Pulse Pulse Resp BP BP Pulse Ox 08/13/17 08:00 97.4 F L 69 18 134/60 97 08/13/17 04:00 61 16 132/61 98 08/13/17 00:00 71 16 136/82 95 08/12/17 22:06 97.3 F L 56 L 14 154/65 99 08/12/17 20:55 69 14 159/86 97 08/12/17 19:26 97.1 F L 72 14 159/86 98 08/12/17 18:49 98.2 F 69 16 156/77 97 Intake and Output 08/12/17 08/13/17 08/13/17 22:59 06:59 14:59 Other: Voiding Method Toilet # Voids 1 Weight 71.668 kg 71.817 kg PHYSICAL EXAMINATION: Patient is lying in the bed comfortably, no acute distress, awake alert and oriented.. HEENT: Normocephalic. Neck is supple. Pupils reactive. Nostrils clear. Oral cavity is moist. Ears reveal no drainage. Neck reveals no JVD, carotid bruits, or thyromegaly. CHEST EXAMINATION: Trachea is central. Symmetrical expansion. Lung todd clear to auscultation and percussion. CARDIAC: Normal S1, S2 with no gallops. No murmurs ABDOMEN: Soft. Bowel sounds normal. No organomegaly. No abdominal bruits. Extremities: reveal no edema. No clubbing or cyanosis Neurologically awake, alert, oriented x3 with well-coordinated movements. Cranial nerves intact. Motor 5/5 on all 4 extremities. Left facial numbness Skin: No rash or skin lesions. Psychiatric: Cooperative. Nonsuicidal Musculoskeletal: No joint swelling or deformity. Normal range of motion. Results CBC & Chem 7: 08/13/17 06:21 08/13/17 06:21 Labs: Abnormal Lab Results - Last 24 Hours (Table) 08/12/17 08/13/17 Range/Units 19:50 06:21 BUN 21 H 19 H (7-17) mg/dL Thrombosis Risk Factor Assmnt - DVT/VTE Prophylaxis DVT/VTE Prophylaxis: Pharmacologic Prophylaxis ordered - Choose All That Apply Each Factor Represents 1 point: Age 41-60 years Thrombosis Risk Factor Assessment Total Risk Factor Score: 1 Thrombosis Risk Factor Assessment Level: Low Risk Assessment and Plan Assessment: Left facial droop with slurred speech and unsteady gait likely due to acute CVA. CT head is negative for any acute process Asthma stable Fibromyalgia History of Gilbert's syndrome syndrome Lumbar disc degenerative disease Depression and anxiety History of seizure disorder DVT prophylaxis Plan: Patient will be continued on aspirin 325 mg by mouth daily. CT head negative. We'll check 2-D echocardiogram and carotid duplex. Neurology consult was placed and is awaiting recommendations. Will follow closely. Patient is improving symptomatically. Time with Patient: Greater than 30
[2017-08-13] MEDS: HEPARIN SODIUM,PORCINE 5,000 UNIT/ML 1 ML VIAL SQ SCH (23:08)
--- NOTE | 2017-08-13 23:58 | US ---
EXAMINATION TYPE: US carotid duplex BILAT DATE OF EXAM: 08/13/2017 COMPARISON: NONE CLINICAL HISTORY: Acute CVA. TIA EXAM MEASUREMENTS: RIGHT: Peak Systolic Velocity (PSV) cm/sec ----- Right CCA: 84.2 ----- Right ICA: 95.8 ----- Right ECA: 94.4 ICA/CCA ratio: 1.0 RIGHT: End Diastole cm/sec ----- Right CCA: 21.7 ----- Right ICA: 27.5 ----- Right ECA: 12.9 LEFT: Peak Systolic Velocity (PSV) cm/sec ----- Left CCA: 100.4 ----- Left ICA: 125.8 ----- Left ECA: 151.5 ICA/CCA ratio: 1.3 LEFT: End Diastole cm/sec ----- Left CCA: 29.0 ----- Left ICA: 35.4 ----- Left ECA: 17.5 VERTEBRALS (direction of flow): Right Vertebral: Antegrade Left Vertebral: Antegrade Rhythm: Normal No significant stenosis seen IMPRESSION: There is antegrade flow in the vertebral arteries. The images and measurements suggest l ess than 25% stenosis in both internal carotid arteries. Criteria for Assigning % of Stenosis / Diameter reduction (Estimation based on the indirect measurements of the internal carotid artery velocities (ICA PSV). 1. Normal (no stenosis)=ICA PSV < 125 cm/s: ratio < 2.0: ICA EDV<40 cm/s. 2. Less than 50% stenosis=ICA PSV < 125 cm/s: ratio < 2.0: ICA EDV<40 cm/s. 3. 50 to 69% stenosis=ICA PSV of 125 to 230 cm/s: ration 2.0 ? 4.0: ICA EDV 40-100 cm/s. 4. Greater than 70% stenosis to near occlusion= ICA PSV > 230 cm/s: ratio > 4.0: ICA EDV > 100 cm/s. 5. Near occlusion= ICA PSV velocities may be low or undetectable: variable ratio and ICA EDV. 6. Total occlusion=unable to detect flow.
[2017-08-14 01:24] LABS: Cholesterol 176 mg/dL (<200); HDL Cholesterol 48 mg/dL (40-60); LDL Cholesterol,Calculated 98 mg/dL (0-99); Triglycerides 151 mg/dL (<150)
[2017-08-14 05:51] LABS: Glucose,Whole Blood 119 mg/dL (75-99)
[2017-08-14] MEDS: HEPARIN SODIUM,PORCINE 5,000 UNIT/ML 1 ML VIAL SQ SCH (08:02)
[2017-08-14] MEDS: GABAPENTIN 300 MG CAP PO SCH ×2 (08:03→20:00)
--- NOTE | 2017-08-14 10:55 | ECHOF ---
Referral Reason:Acute CVA MEASUREMENTS -------- HEIGHT: 152.4 cm WEIGHT: 71.7 kg BP: 123/71 RVIDd: 2.5 cm (< 3.3) IVSd: 1.0 cm (0.6 - 1.1) LVIDd: 4.1 cm (3.9 - 5.3) LVPWd: 1.0 cm (0.6 - 1.1) IVSs: 1.2 cm LVIDs: 2.9 cm LVPWs: 1.3 cm LAESV Index (A-L): 27.87 ml/m Ao Diam: 2.6 cm (2.0 - 3.7) AV Cusp: 1.9 cm (1.5 - 2.6) LA Diam: 3.1 cm (2.7 - 3.8) EPSS: 0.7 cm MV E Pedro: 0.91 m/s MV DecT: 273 ms MV A Pedro: 0.76 m/s MV E/A Ratio: 1.21 RAP: 5.00 mmHg RVSP: 18.22 mmHg MV EF SLOPE: 82.85 mm/s (70 - 150) MV EXCURSION: 1.41 cm (> 18.000) FINDINGS -------- Sinus rhythm. This was a technically good study. The left ventricular size is normal. Left ventricular wall thickness is normal. Overall left vent ricular systolic function is normal with, an EF between 55 - 60 %. The right ventricle is normal in size and function. Normal LA size by volume 22+/-6 ml/m2. The right atrium is normal in size. The aortic valve is trileaflet, and appears structurally normal. No aortic stenosis or regurgitation. The mitral valve leaflets are mildly thickened. There is trace mitral regurgitation. Trace tricuspid regurgitation present. Right ventricular systolic pressure is normal at < 35 mmHg. There is no evidence of pulmonary hypertension. Trace/mild (physiologic) pulmonic regurgitation. The aortic root size is normal. Normal inferior vena cava with normal inspiratory collapse consistent with estimated right atrial pre ssure of 5 mmHg. There is no pericardial effusion. CONCLUSIONS -------- 1. Sinus rhythm. 2. This was a technically good study. 3. The left ventricular size is normal. 4. Left ventricular wall thickness is normal. 5. Overall left ventricular systolic function is normal with, an EF between 55 - 60 %. 6. Normal LA size by volume 22+/-6 ml/m2. 7. The aortic valve is trileaflet, and appears structurally normal. No aortic stenosis or regurgitati on. 8. The mitral valve leaflets are mildly thickened. 9. There is trace mitral regurgitation. 10. Trace tricuspid regurgitation present. 11. Right ventricular systolic pressure is normal at < 35 mmHg. 12. There is no evidence of pulmonary hypertension. 13. Trace/mild (physiologic) pulmonic regurgitation. 14. The aortic root size is normal. 15. There is no pericardial effusion. GEL COATER: Sterling Castro RDCS
[2017-08-14 11:43] LABS: Glucose,Whole Blood 99 mg/dL (75-99)
[2017-08-14] MEDS: ENOXAPARIN 30 MG/0.3 ML SYRINGE SQ SCH (20:00)
[2017-08-14] MEDS: MONTELUKAST 10 MG TAB PO SCH (20:00)
--- NOTE | 2017-08-14 20:30 | P.CNNES ---
History of Present Illness Consult date: 08/14/17 History of Present Illness: The patient is a 51-year-old right-handed white female who states that on Friday this week she was not feeling well. She felt like she was stumbling and slurred had some slurred speech. Friday she went to work and she continued to experience some slurred speech and she was confused. She decided to go to her primary care office on Friday. He noticed a left facial droop and told her to go to the emergency room. The patient did drive with her friend to the emergency room and she reported that her slurred speech gradually resolved. She had a CAT scan of the head in the emergency room which did not show any acute process. The patient does have a history of seizures and her last seizure was in 2012. She was taken off her seizure medications at that time. She was told that her seizures were due to sleep deprivation. Next The patient has had no further slurred speech. She did experience a little blurred vision today. He was admitted to the hospital to rule out acute stroke. She had a carotid ultrasound which showed less than 25% stenosis in the ICA. She had an echocardiogram which was unremarkable. The patient has had resolution of her symptoms. She has been started on aspirin daily. He denies any past history of neurologic events such as slurred speech or focal weakness. She did experience some right leg weakness yesterday. Review of Systems Constitutional: Denies chills, Denies fever Cardiovascular: Denies chest pain, Denies shortness of breath Respiratory: Denies cough Musculoskeletal: Denies myalgias Neurological: Reports as per HPI Psychiatric: Denies anxiety, Denies depression Past Medical History Past Medical History: Asthma, Fibromyalgia, Musculoskeletal Disorder, Seizure Disorder Additional Past Medical History / Comment(s): Diverticulitis, Gilbert's syndrome , Osteoprosis, Seizures > 4 years ago, wears contacts, lumbar DDD/DJD History of Any Multi-Drug Resistant Organisms: None Reported Past Surgical History: Section, Cholecystectomy, Hysterectomy, Tonsillectomy Additional Past Surgical History / Comment(s): Partial hysterectomy Past Anesthesia/Blood Transfusion Reactions: No Reported Reaction Past Psychological History: Depression Additional Psychological History / Comment(s): Seasonal depression. Smoking Status: Never smoker Past Alcohol Use History: None Reported Past Drug Use History: None Reported - Past Family History Father Additional Family Medical History / Comment(s): Committed suicide. Cancer, DM, heart disease, depression on his side of the family. Most of father's side of a type of cancer. Mother Family Medical History: Cancer Additional Family Medical History / Comment(s): Skin cancer, heart problems, depression, DM. Committed suicide. Mother's sister (aunt) of brain cancer. Sister(s) Family Medical History: Cancer, Liver Disease, Renal Disease Additional Family Medical History / Comment(s): of cancer. Another sister has liver failure. Another sister has heart problems. "Baby sister" has osteoporosis. Little sister has kidney problems. Brother(s) Family Medical History: Cancer Additional Family Medical History / Comment(s): Older brother committed suicide/ had skin cancer. Little brother has heart problems w/ 2 surgeries/depression/ mental issues. Medications and Allergies Home Medications Medication Instructions Recorded Confirmed Type Budesonide-Formot 160-4.5 Mcg 2 puff INHALATION RT-BID #1 inh 05/26/17 08/12/17 Rx [Symbicort 160-4.5 Mcg Inhaler] Montelukast Sodium [Singulair] 10 mg PO HS #30 tab 05/26/17 08/12/17 Rx Albuterol Inhaler [Ventolin Hfa 2 puff INHALATION RT-QID 08/12/17 08/12/17 History Inhaler] Ergocalciferol (Vitamin D2) 50,000 unit PO NOBLE 08/12/17 08/12/17 History [Vitamin D2] Fluocinonide 0.05% Solution 1 applic TOPICAL DAILY PRN 08/12/17 08/12/17 History Furosemide [Lasix] 20 mg PO HS 08/12/17 08/12/17 History Gabapentin [Neurontin] 300 mg PO BID 08/12/17 08/12/17 History Ibuprofen [Motrin] 600 mg PO Q8HR PRN 08/12/17 08/12/17 History Allergies Allergy/AdvReac Type Severity Reaction Status Date / Time codeine Allergy Unknown Verified 08/12/17 19:56 Iodinated Contrast- Oral and Allergy Dyspnea Verified 08/12/17 19:56 IV Dye levetiracetam [From [facility]] Allergy Unknown Verified 08/12/17 19:56 morphine Allergy Unknown Verified 05/01/18 19:56 tramadol Allergy Unknown Verified 08/12/17 19:56 heparin AdvReac Swelling Verified 08/12/17 19:56 tape Allergy Unknown Uncoded 08/12/17 18:55 Physical Examination - Vital Signs Vital Signs: Vital Signs Temp Pulse Resp BP Pulse Ox 08/14/17 16:00 74 16 129/94 99 08/14/17 12:00 63 16 136/97 99 08/14/17 08:00 65 16 126/95 96 08/14/17 04:00 86 16 123/71 97 08/14/17 00:00 98.1 F 84 17 134/74 96 Intake and Output 08/14/17 08/14/17 08/14/17 06:59 14:59 22:59 Intake Total 476 236 Balance 476 236 Intake: Oral 476 236 Other: Voiding Method Toilet # Voids 1 1 Weight 72 kg - Constitutional General appearance: cooperative - EENT EENT: PERRL, hearing intact, vision intact - Respiratory Respiratory: lungs clear - Cardiovascular Cardiovascular: regular rate, normal S1, normal S2 - Integumentary Integumentary: normal - Neurologic Cranial nerve examination: V1/V2/V3 grossly intact, face symmetric, tongue midline, intact Speech examination: intact Detailed motor examination: grossly full strength in all extremities - Psychiatric Psychiatric: mood/affect appropriate Results - Laboratory Findings CBC and BMP: 08/13/17 06:21 08/13/17 06:21 Abnormal Lab Findings: Abnormal Labs 08/12/17 08/13/17 08/13/17 19:50 06:21 06:21 BUN 21 H 19 H POC Glucose (mg/dL) Triglycerides 151 H 08/13/17 08/13/17 08/14/17 16:33 20:36 05:49 BUN POC Glucose (mg/dL) 102 H 132 H 119 H Triglycerides Assessment and Plan (1) TIA (transient ischemic attack) Current Visit: Yes Status: Acute SNOMED Code(s): 635174163 Plan: The patient is a 51-year-old woman who presents with history of facial droop and slurred speech and right leg weakness. Her neurologic examination currently is nonfocal. The patient may have had a TIA. Recommend continue aspirin therapy and recommend MRI scan of the brain. She has had a carotid ultrasound and echocardiogram which were unremarkable. Recommend also hematology consultation which can be done outpatient to rule out underlying coagulopathy.
--- NOTE | 2017-08-15 01:09 | P.PN ---
Subjective Progress Note Date: 08/14/17 Principal diagnosis: TIA Patient is a 51-year-old female with a known history of asthma fibromyalgia and seizure disorder came to the hospital with complaints of slurred speech and left facial droop along with dizziness. Patient says that her symptoms started on Friday and the patient was not feeling good. Patient went to see his primary care physician and was recommended to go to ER. Patient has been tripping and stumbling along with slurred speech. Denied any previous history of CVA/TIA. No complaints of chest pain or shortness of breath. 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 Patient also says that sometimes her heart racing of fast and night. CT head showed no acute intracranial process EKG showed normal sinus with sinus arrhythmia 08/14/2017 Patient does not have any weakness or facial droop today. Neurological symptoms had resolved. Patient was seen by neurology. Otherwise patient did complain of some catching up feeling when she swallows in the throat. Also complaining of some blurred vision as well patient is being continued on aspirin. No other acute overnight issues. Carotid duplex and 2-D echocardiogram were essentially negative studies. All other review of systems negative for the above Current medications reviewed Objective - Vital Signs Vital signs: Vital Signs Temp 98.1 F 08/14/17 00:00 Pulse 65 08/14/17 08:00 Resp 16 08/14/17 08:00 BP 126/95 08/14/17 08:00 Pulse Ox 96 08/14/17 08:00 Intake & Output 08/13/17 08/14/17 08/14/17 18:59 06:59 18:59 Intake Total 240 Balance 240 Weight 72 kg Intake: Oral 240 Other: Voiding Method Toilet Toilet # Voids 1 1 - Exam PHYSICAL EXAMINATION: Patient is lying in the bed comfortably, no acute distress, awake alert and oriented.. HEENT: Normocephalic. Neck is supple. Pupils reactive. Nostrils clear. Oral cavity is moist. Ears reveal no drainage. Neck reveals no JVD, carotid bruits, or thyromegaly. CHEST EXAMINATION: Trachea is central. Symmetrical expansion. Lung todd clear to auscultation and percussion. CARDIAC: Normal S1, S2 with no gallops. No murmurs ABDOMEN: Soft. Bowel sounds normal. No organomegaly. No abdominal bruits. Extremities: reveal no edema. No clubbing or cyanosis Neurologically awake, alert, oriented x3 with well-coordinated movements. No focal deficits noted Skin: No rash or skin lesions. Psychiatric: Coperative. Nonsuicidal Musculoskeletal: No joint swelling or deformity. Normal range of motion. - Labs CBC & Chem 7: 08/13/17 06:21 08/13/17 06:21 Labs: Abnormal Lab Results - Last 24 Hours (Table) 08/13/17 08/13/17 08/13/17 Range/Units 06:21 16:33 20:36 POC Glucose (mg/dL) 102 H 132 H (75-99) mg/dL Triglycerides 151 H (<150) mg/dL 08/14/17 Range/Units 05:49 POC Glucose (mg/dL) 119 H (75-99) mg/dL Triglycerides (<150) mg/dL Assessment and Plan Assessment: Left facial droop with slurred speech and unsteady gait likely due to TIA. Resolved at this time. CT head is negative for any acute process Asthma stable Fibromyalgia History of Gilbert's syndrome syndrome Lumbar disc degenerative disease Depression and anxiety History of seizure disorder DVT prophylaxis Plan: Patient will be continued on aspirin 325 mg by mouth daily. CT head negative. 2-D echocardiogram and carotid duplex were done. Neurology has seen the patient. Time with Patient: Greater than 30
[2017-08-15] MEDS: IBUPROFEN 600 MG TAB PO PRN (08:11)
[2017-08-15] MEDS: GABAPENTIN 300 MG CAP PO SCH ×2 (08:11→20:24)
--- NOTE | 2017-08-15 11:24 | MR ---
EXAMINATION TYPE: MR brain wo con DATE OF EXAM: 08/15/2017 11:18 AM COMPARISON: NONE HISTORY: slurred speech, weakness more so left side FINDINGS: The ventricles, basal cisterns and sulci overlying the cerebral convexities are minimally enlarged. There is evidence of mild periventricular white matter ischemic demyelination. Remote deep white matter insults are also noted. No acute edema is seen on diffusion weighted imaging. There is no evidence for midline shift or mass effect. Acute intracranial hemorrhage or extra-axial collection is not evident. The paranasal sinuses and mastoid air cells are well-aerated. IMPRESSION: Age-related atrophic and chronic small vessel ischemic change. No acute intracranial process at this time.
[2017-08-15] MEDS ORDERED: LORazepam 2 MG/ML INJ IV STA (13:55)
[2017-08-15] MEDS: ASPIRIN 325 MG TAB PO SCH (15:13)
--- NOTE | 2017-08-15 15:38 | P.CONS ---
History of Present Illness - Chief Complaint Gait disturbance and slurring of speech - History of Present Illness I had the opportunity to see patient for inpatient rehab consultation with regard to gait disturbance and slurring of speech. She was admitted to [facility] August 12 with acute onset left-sided weakness and slurring of speech. Seen by Dr. Daisy Fisher who diagnosed TIA. Head CT negative or age-related change only. Brain MRI demonstrated age-related change and small vessel change. Carotid Doppler was less than 25% stenosis. PT reports supervision for bed mobility and minimal for transfers and gait 150 feet with roller walker. OT reports modified dependent with upper dressing and supervision for bathing. Minimal assistance for lower dressing, toileting and transfers. Speech therapy prescribed. Previous functional history as elicited from patient: 51-year-old right-handed white female who is lives and 2 floor with daughter and daughter's kids. Patient works full-time and is indeed independent. Regular doctors Dr. Tejada. lives with his parents and takes care of them. Note works full-time. Family history both parents were smokers. Review of Systems Review of systems: ENT: Denies sneezes or discharge. Eyes: Denies discharge or photophobia. Cardiac: Denies chest pain or palpitation. Pulmonary: Denies cough or shortness of breath. Breast: Denies discharge or lumps. Gastrointestinal: Denies nausea, emesis, constipation, diarrhea. Genitourinary: Denies discharge or frequency. Musculoskeletal: Denies muscle or bone aches. Neurologic: Left-sided weakness. Endocrine: Denies shakes or sweats. Oncology: Denies cancers. Dermatologic: Denies rash, itching, pruritus. ALLERGY/immunology: Denies sneezes, rashes. Past Medical History Past Medical History: Asthma, Fibromyalgia, Musculoskeletal Disorder, Seizure Disorder Additional Past Medical History / Comment(s): Diverticulitis, Gilbert's syndrome , Osteoprosis, Seizures > 4 years ago, wears contacts, lumbar DDD/DJD History of Any Multi-Drug Resistant Organisms: None Reported Past Surgical History: Section, Cholecystectomy, Hysterectomy, Tonsillectomy Additional Past Surgical History / Comment(s): Partial hysterectomy Past Anesthesia/Blood Transfusion Reactions: No Reported Reaction Past Psychological History: Depression Additional Psychological History / Comment(s): Seasonal depression. Smoking Status: Never smoker Past Alcohol Use History: None Reported Past Drug Use History: None Reported - Past Family History Father Additional Family Medical History / Comment(s): Committed suicide. Cancer, DM, heart disease, depression on his side of the family. Most of father's side of a type of cancer. Mother Family Medical History: Cancer Additional Family Medical History / Comment(s): Skin cancer, heart problems, depression, DM. Committed suicide. Mother's sister (aunt) of brain cancer. Sister(s) Family Medical History: Cancer, Liver Disease, Renal Disease Additional Family Medical History / Comment(s): of cancer. Another sister has liver failure. Another sister has heart problems. "Baby sister" has osteoporosis. Little sister has kidney problems. Brother(s) Family Medical History: Cancer Additional Family Medical History / Comment(s): Older brother committed suicide/ had skin cancer. Little brother has heart problems w/ 2 surgeries/depression/ mental issues. Medications and Allergies Home Medications Medication Instructions Recorded Confirmed Type Budesonide-Formot 160-4.5 Mcg 2 puff INHALATION RT-BID #1 inh 05/26/17 08/12/17 Rx [Symbicort 160-4.5 Mcg Inhaler] Montelukast Sodium [Singulair] 10 mg PO HS #30 tab 05/26/17 08/12/17 Rx Albuterol Inhaler [Ventolin Hfa 2 puff INHALATION RT-QID 08/12/17 08/12/17 History Inhaler] Ergocalciferol (Vitamin D2) 50,000 unit PO NOBLE 08/12/17 08/12/17 History [Vitamin D2] Fluocinonide 0.05% Solution 1 applic TOPICAL DAILY PRN 08/12/17 08/12/17 History Furosemide [Lasix] 20 mg PO HS 08/12/17 08/12/17 History Gabapentin [Neurontin] 300 mg PO BID 08/12/17 08/12/17 History Ibuprofen [Motrin] 600 mg PO Q8HR PRN 08/12/17 08/12/17 History Allergies Allergy/AdvReac Type Severity Reaction Status Date / Time codeine Allergy Unknown Verified 08/12/17 19:56 Iodinated Contrast- Oral and Allergy Dyspnea Verified 08/12/17 19:56 IV Dye levetiracetam [From [facility]] Allergy Unknown Verified 08/12/17 19:56 morphine Allergy Unknown Verified 08/12/17 19:56 tramadol Allergy Unknown Verified 08/12/17 19:56 heparin AdvReac Swelling Verified 08/12/17 19:56 tape Allergy Unknown Uncoded 08/12/17 18:55 Physical Exam Vitals: Vital Signs Temp Pulse Resp BP Pulse Ox 08/15/17 15:28 97 F L 57 L 16 133/75 97 08/15/17 11:51 56 L 16 139/73 98 08/15/17 08:00 96.1 F L 66 16 117/62 97 08/15/17 04:00 98.0 F 57 L 16 117/64 99 08/15/17 00:00 97.4 F L 66 17 120/70 100 08/14/17 20:00 98.1 F 57 L 18 136/75 98 08/14/17 16:00 74 16 129/94 99 Intake and Output 08/15/17 08/15/17 08/15/17 06:59 14:59 22:59 Intake Total 298 Balance 298 Intake: Oral 298 Other: Voiding Method Toilet # Voids 3 2 Weight 71.5 kg Skin: Good color, texture, turgor. General: Medium build and comfortable appearance. Head: Normocephalic, atraumatic. Eyes: Symmetric. Pupils equal round. Ears: Symmetric. Hearing within normal limits. Mouth: Clear. Neck: Supple. Carotid without bruit. Cardiac: Regular rate and rhythm. Lungs: Clear anteriorly and posteriorly. Abdomen: Soft active nontender. Extremities: Normal tone. Neurological: Mental status: Alert, cooperative, pleasant. Cranial nerves: Symmetric facial tone and trapezius. Motor: Normal strength and isolation right side. Left arm and leg with elements isolation but poor at ankle and 3+ and hand and wrist. Sensation: Intact throughout. DTRs: Symmetric and equal throughout. Mobility: Sits without assistance or verbal cueing or loss of balance. Would require assistance for sitting at edge of bed and transfers. Results CBC & Chem 7: 08/13/17 06:21 08/13/17 06:21 CT Scan - head: report reviewed (Age related change in cerebral atrophy.) MRI - head: report reviewed (Age-related change and small vessel change.) Assessment and Plan (1) Cerebrovascular accident Current Visit: Yes Status: Acute Code(s): I63.9 - CEREBRAL INFARCTION, UNSPECIFIED SNOMED Code(s): 966434463 Plan: Impression: 1. Gait disturbance. 2. Stroke with resultant left hemiparesthesias. 3. Upper respiratory syndrome. 4. Asthma. 5. Fibro-myalgia. 6. Seizure disorder. Comments and plan: PT and OT are ongoing and safety concerns noted speech therapy prescribed. We'll review case Friday a.m. determine if patient requires inpatient rehab. Patient advised accordingly.
--- NOTE | 2017-08-15 17:53 | P.PN ---
Subjective Progress Note Date: 08/15/17 The patient is a 51-year-old woman who presented to the hospital yesterday with facial droop and numbness. The patient states that today she still feels a heaviness in the left leg and some numbness in the left leg. She also describes some blurry vision in the left eye. She states when she walked in the hallway she felt her left foot was dragging somewhat. There has been no recurrence of facial droop or any history of speech loss. She denies any headache or pain. She has a history of some right-sided neck pain occasionally. She had an MRI of the brain which was unremarkable. Objective - Vital Signs Vital signs: Vital Signs Temp 97 F L 08/15/17 15:28 Pulse 57 L 08/15/17 15:28 Resp 16 08/15/17 15:28 BP 133/75 08/15/17 15:28 Pulse Ox 97 08/15/17 15:28 Intake & Output 08/14/17 08/15/17 08/15/17 18:59 06:59 18:59 Intake Total 712 298 Balance 712 298 Weight 71.5 kg Intake: Oral 712 298 Other: Voiding Method Toilet # Voids 1 3 2 - Constitutional General appearance: Present: cooperative - EENT ENT: Present: hearing grossly normal - Respiratory Respiratory: bilateral: CTA - Cardiovascular Rhythm: regular - Neurologic Neurologic Comment(s): Mental status: She was awake alert and oriented 3 her speech was fluent Sensory examination slight decreased light touch left arm and left leg Neurologic: Present: CNII-XII intact - Musculoskeletal Musculoskeletal: Present: strength equal bilaterally - Psychiatric Psychiatric: Present: A&O x's 3, appropriate affect - Labs CBC & Chem 7: 08/13/17 06:21 08/13/17 06:21 Assessment and Plan (1) TIA (transient ischemic attack) Current Visit: Yes Status: Acute SNOMED Code(s): 017386679 Plan: The patient is a 50-year-old woman admitted to the hospital with TIA. She has been placed on aspirin. She continues to experience some numbness in the left leg and felt that when she walked she dragged her left foot. Her neurologic examination is unremarkable except for some subjective decreased light touch in the left arm and left leg. Recommend further evaluation with CT angiogram of the head and neck. Continue aspirin daily. Physical therapy therapy
[2017-08-15] MEDS: MONTELUKAST 10 MG TAB PO SCH (20:24)
[2017-08-15] MEDS: ENOXAPARIN 30 MG/0.3 ML SYRINGE SQ SCH (20:24)
--- NOTE | 2017-08-16 01:07 | P.PN ---
Subjective Progress Note Date: 08/15/17 Principal diagnosis: TIA Patient is a 51-year-old female with a known history of asthma fibromyalgia and seizure disorder came to the hospital with complaints of slurred speech and left facial droop along with dizziness. Patient says that her symptoms started on Friday and the patient was not feeling good. Patient went to see his primary care physician and was recommended to go to ER. Patient has been tripping and stumbling along with slurred speech. Denied any previous history of CVA/TIA. No complaints of chest pain or shortness of breath. 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 Patient also says that sometimes her heart racing of fast and night. CT head showed no acute intracranial process EKG showed normal sinus with sinus arrhythmia 08/14/2017 Patient does not have any weakness or facial droop today. Neurological symptoms had resolved. Patient was seen by neurology. Otherwise patient did complain of some catching up feeling when she swallows in the throat. Also complaining of some blurred vision as well patient is being continued on aspirin. No other acute overnight issues. Carotid duplex and 2-D echocardiogram were essentially negative studies. 08/15/2017 Patient says that she had a worsening left lower extremity and approximately weakness this morning. Neurology recommended to get MRI/MRA. Otherwise patient is ALLERGIC to iodine contrast oral and IV dye. Continued on PT OT and rehab consult has been placed. No fever no chills. No chest pain or shortness of breath. All other review of systems negative for the above Current medications reviewed Objective - Vital Signs Vital signs: Vital Signs Temp 97 F L 08/16/17 00:00 Pulse 74 08/16/17 00:00 Resp 18 08/16/17 00:00 BP 122/61 08/16/17 00:00 Pulse Ox 98 08/16/17 00:00 Intake & Output 08/15/17 08/15/17 08/16/17 06:59 18:59 06:59 Intake Total 498 Output Total 1 Balance 498 -1 Weight 71.5 kg Intake: Oral 498 Output: Urine 1 Other: Voiding Method Toilet Toilet # Voids 3 2 - Exam PHYSICAL EXAMINATION: Patient is lying in the bed comfortably, no acute distress, awake alert and oriented.. HEENT: Normocephalic. Neck is supple. Pupils reactive. Nostrils clear. Oral cavity is moist. Ears reveal no drainage. Neck reveals no JVD, carotid bruits, or thyromegaly. CHEST EXAMINATION: Trachea is central. Symmetrical expansion. Lung todd clear to auscultation and percussion. CARDIAC: Normal S1, S2 with no gallops. No murmurs ABDOMEN: Soft. Bowel sounds normal. No organomegaly. No abdominal bruits. Extremities: reveal no edema. No clubbing or cyanosis Neurologically awake, alert, oriented x3 with well-coordinated movements. No focal deficits noted Skin: No rash or skin lesions. Psychiatric: Coperative. Nonsuicidal Musculoskeletal: No joint swelling or deformity. Normal range of motion. - Labs CBC & Chem 7: 08/13/17 06:21 18 06:21 Assessment and Plan Assessment: Left facial droop with slurred speech and unsteady gait likely due to TIA. Possible CVA. CT head is negative for any acute process Asthma stable Fibromyalgia History of Gilbert's syndrome syndrome Lumbar disc degenerative disease Depression and anxiety History of seizure disorder DVT prophylaxis Plan: Patient will be continued on aspirin 325 mg by mouth daily. CT head negative. 2-D echocardiogram and carotid duplex were done. MRI/MRA was ordered. Neurology has seen the patient. Time with Patient: Greater than 30
[2017-08-16 07:08] LABS: Basophils % (A) 1 %; Eosinophils # (A) 0.2 k/uL (0-0.7); Eosinophils % (A) 3 %; HCT 38.2 % (34.0-46.0); HGB 12.9 gm/dL (11.4-16.0); Lymphocytes # (A) 1.6 k/uL (1.0-4.8); Lymphocytes % (A) 25 %; MCHC 33.9 g/dL (31.0-37.0); MCV 85.5 fL (80.0-100.0); Mean Platelet Volume 7.9; Monocytes # (A) 0.4 k/uL (0-1.0); Monocytes % (A) 5 %; Neutrophils # (A) 4.2 k/uL (1.3-7.7); Neutrophils % (A) 64 %; Platelet Count 236 k/uL (150-450); RBC 4.46 m/uL (3.80-5.40); RDW 13.2 % (11.5-15.5); WBC 6.5 k/uL (3.8-10.6)
[2017-08-16 07:22] LABS: Anion Gap 12 mmol/L; Blood Urea Nitrogen 25 mg/dL (7-17); Calcium 9.2 mg/dL (8.4-10.2); Carbon Dioxide 22 mmol/L (22-30); Chloride 106 mmol/L (98-107); Glucose 93 mg/dL (74-99); Potassium 4.6 mmol/L (3.5-5.1); Sodium 140 mmol/L (137-145)
[2017-08-16] MEDS: GABAPENTIN 300 MG CAP PO SCH ×2 (08:00→21:05)
[2017-08-16] MEDS: ASPIRIN 325 MG TAB PO SCH (08:00)
--- NOTE | 2017-08-16 09:13 | CT ---
EXAMINATION TYPE: CT brain wo con DATE OF EXAM: 08/16/2017 COMPARISON: Previous study dated 08/12/2017 HISTORY: Follow up to TIA, Lt facial droop, slurred speech CT DLP: 898.0 mGycm Automated exposure control for dose reduction was used. FINDINGS: Central structures are midline. There is no evidence of hydrocephalus. No acute focal lesion, mass ef fect or midline shift is seen. I do not see evidence of intracranial blood. Visualized portions of the paranasal sinuses and mastoids are clear. The bony calvarium is intact. IMPRESSION: NORMAL CT SCAN OF THE BRAIN.
--- NOTE | 2017-08-16 10:07 | MR ---
EXAMINATION TYPE: MR angio head wo con, MR angio neck wo con DATE OF EXAM: 08/15/2017 7:56 PM COMPARISON: NONE HISTORY: CVA Three-dimensional [id number] intracranial MRA was performed with multiple intensity projection im ages submitted and source data reviewed at the workstation. The vertebrobasilar system as well as intracranial portions of the internal carotid arteries and thei r major tributaries are patent. I do not see evidence for sizable aneurysm or vascular malformation. IMPRESSION: Normal study. EXAMINATION TYPE: MR angio head wo con, MR angio neck wo con DATE OF EXAM: 08/15/2017 7:56 PM COMPARISON: NONE HISTORY: CVA Three-dimensional [id number] cervical carotid MRA was performed with multiple intensity projectio n images submitted and source data reviewed at the workstation. Right carotid system: There is mild plaque seen about the common carotid artery. Mild plaque is also seen at the origin and proximal aspect of the right internal carotid artery. Stenosis is estimated at less than 50%. No hemodynamically significant stenosis is appreciated. Right external carotid ar elen right vertebral artery are patent. Left carotid system: Mild plaque involving the left common carotid artery. Minimal to mild plaque or igin left ICA. No hemodynamically significant stenosis is appreciated. External carotid artery and the left vertebral artery are patent. IMPRESSION: 1. No hemodynamically significant stenosis is appreciated at this time.
[2017-08-16] MEDS: IBUPROFEN 600 MG TAB PO PRN ×2 (15:42→23:25)
--- NOTE | 2017-08-16 18:15 | P.PN ---
Subjective Progress Note Date: 08/16/17 The patient is a 51-year-old woman who presented to the hospital with transient episode of left facial droop and numbness. The patient states that today she still feels back to normal except for slight heaviness of the left leg.. She will be undergoing rehab. Her nurse yesterday evening thought she had facial asymmetry. Neurology was called and asked stat computed tomography scan was ordered. This scan was normal. The patient herself did not recognize any new symptoms or complaints. She denies any headache or pain. She had an MRI of the brain which was unremarkable. The patient underwent an MRA of the neck for further evaluation and this was normal. Also she had an MRI of the brain which was normal. Commended continue aspirin therapy. Recommend hematology consult to rule out coagulation disturbance Objective - Vital Signs Vital signs: Vital Signs Temp 96.9 F L 08/16/17 16:00 Pulse 69 08/16/17 16:00 Resp 18 08/16/17 16:00 BP 119/57 08/16/17 16:00 Pulse Ox 97 08/16/17 16:00 Intake & Output 08/15/17 08/16/17 08/16/17 18:59 06:59 18:59 Intake Total 498 200 860 Output Total 1 Balance 498 199 860 Weight 71.4 kg Intake: Oral 498 200 860 Output: Urine 1 Other: Voiding Method Toilet # Voids 2 3 - Constitutional General appearance: Present: average body habitus, cooperative - EENT Eyes: Present: PERRLA ENT: Present: hearing grossly normal - Neck Carotids: bilateral: upstroke normal - Respiratory Respiratory: bilateral: CTA - Cardiovascular Rhythm: regular - Neurologic Neurologic: Present: CNII-XII intact - Musculoskeletal Musculoskeletal: Present: strength equal bilaterally - Psychiatric Psychiatric: Present: A&O x's 3, appropriate affect - Labs CBC & Chem 7: 08/16/17 06:30 08/16/17 06:30 Labs: Abnormal Lab Results - Last 24 Hours (Table) 08/16/17 Range/Units 06:30 BUN 25 H (7-17) mg/dL Assessment and Plan (1) TIA (transient ischemic attack) Current Visit: Yes Status: Acute SNOMED Code(s): 100585012 Plan: The patient is a 51-year-old woman admitted to the hospital with TIA. She has been placed on aspirin. Her echocardiogram carotid ultrasound MRI of the brain of the normal. Also today she had an MRA of the brain as well as MRA of the carotid arteries and this was normal. She will have rehab we'll continue on 325 mg of aspirin daily and recommend hematology evaluation.
[2017-08-16] MEDS: ENOXAPARIN 30 MG/0.3 ML SYRINGE SQ SCH (21:04)
[2017-08-16] MEDS: MONTELUKAST 10 MG TAB PO SCH (21:05)
--- NOTE | 2017-08-16 22:14 | P.PN ---
Subjective Progress Note Date: 08/16/17 Principal diagnosis: TIA Patient is a 51-year-old female with a known history of asthma fibromyalgia and seizure disorder came to the hospital with complaints of slurred speech and left facial droop along with dizziness. Patient says that her symptoms started on Friday and the patient was not feeling good. Patient went to see his primary care physician and was recommended to go to ER. Patient has been tripping and stumbling along with slurred speech. Denied any previous history of CVA/TIA. No complaints of chest pain or shortness of breath. 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 Patient also says that sometimes her heart racing of fast and night. CT head showed no acute intracranial process EKG showed normal sinus with sinus arrhythmia 08/14/2017 Patient does not have any weakness or facial droop today. Neurological symptoms had resolved. Patient was seen by neurology. Otherwise patient did complain of some catching up feeling when she swallows in the throat. Also complaining of some blurred vision as well patient is being continued on aspirin. No other acute overnight issues. Carotid duplex and 2-D echocardiogram were essentially negative studies. 08/15/2017 Patient says that she had a worsening left lower extremity and approximately weakness this morning. Neurology recommended to get MRI/MRA. Otherwise patient is ALLERGIC to iodine contrast oral and IV dye. Continued on PT OT and rehab consult has been placed. No fever no chills. No chest pain or shortness of breath. 08/16/2017 Patient says that her left-sided strength is better. Says that her leg is still weak. Otherwise neurologic workup including MRI/MRA of the head and CT angiogram is negative. Patient denied any difficulty swallowing. No fever no chills. Patient was evaluated by PT OT and possible transfer to rehab on Friday. All other review of systems negative for the above Current medications reviewed Objective - Vital Signs Vital signs: Vital Signs Temp 97.4 F L 08/16/17 11:59 Pulse 68 08/16/17 11:59 Resp 18 08/16/17 12:00 BP 111/66 08/16/17 11:59 Pulse Ox 97 08/16/17 08:00 Intake & Output 08/15/17 08/16/17 08/16/17 18:59 06:59 18:59 Intake Total 498 200 Output Total 1 Balance 498 199 Weight 71.4 kg Intake: Oral 498 200 Output: Urine 1 Other: Voiding Method Toilet # Voids 2 3 - Exam PHYSICAL EXAMINATION: Patient is lying in the bed comfortably, no acute distress, awake alert and oriented.. HEENT: Normocephalic. Neck is supple. Pupils reactive. Nostrils clear. Oral cavity is moist. Ears reveal no drainage. Neck reveals no JVD, carotid bruits, or thyromegaly. CHEST EXAMINATION: Trachea is central. Symmetrical expansion. Lung todd clear to auscultation and percussion. CARDIAC: Normal S1, S2 with no gallops. No murmurs ABDOMEN: Soft. Bowel sounds normal. No organomegaly. No abdominal bruits. Extremities: reveal no edema. No clubbing or cyanosis Neurologically awake, alert, oriented x3 with well-coordinated movements. Left- sided minimal weakness. Skin: No rash or skin lesions. Psychiatric: Coperative. Nonsuicidal Musculoskeletal: No joint swelling or deformity. Normal range of motion. - Labs CBC & Chem 7: 08/16/17 06:30 08/16/17 06:30 Labs: Abnormal Lab Results - Last 24 Hours (Table) 08/16/17 Range/Units 06:30 BUN 25 H (7-17) mg/dL Assessment and Plan Assessment: Left facial droop with slurred speech and unsteady gait likely due to TIA. Possible CVA. CT head is negative for any acute process Asthma stable Fibromyalgia History of Gilbert's syndrome syndrome Lumbar disc degenerative disease Depression and anxiety History of seizure disorder DVT prophylaxis Plan: Patient will be continued on aspirin 325 mg by mouth daily. CT head negative. 2-D echocardiogram and carotid duplex were done. MRI/MRA showed no acute process. Neurology has seen the patient. PT OT and possible transfer to rehab. Time with Patient: Greater than 30
[2017-08-17 06:51] LABS: Basophils % (A) 1 %; Eosinophils # (A) 0.2 k/uL (0-0.7); Eosinophils % (A) 3 %; HCT 37.6 % (34.0-46.0); HGB 12.6 gm/dL (11.4-16.0); Lymphocytes % (A) 29 %; MCH 28.6 pg (25.0-35.0); MCHC 33.4 g/dL (31.0-37.0); MCV 85.6 fL (80.0-100.0); Mean Platelet Volume 8.2; Monocytes # (A) 0.3 k/uL (0-1.0); Monocytes % (A) 5 %; Neutrophils # (A) 4.2 k/uL (1.3-7.7); Neutrophils % (A) 61 %; Platelet Count 224 k/uL (150-450); RBC 4.39 m/uL (3.80-5.40); RDW 13.3 % (11.5-15.5); WBC 6.9 k/uL (3.8-10.6)
[2017-08-17 07:00] LABS: Calcium 9.5 mg/dL (8.4-10.2); Potassium 4.7 mmol/L (3.5-5.1)
[2017-08-17] MEDS: ASPIRIN 325 MG TAB PO SCH (08:33)
[2017-08-17] MEDS: GABAPENTIN 300 MG CAP PO SCH ×2 (08:34→20:01)
[2017-08-17] MEDS ORDERED: ERGOCALCIFEROL 50,000 UNIT CAP PO SCH (12:00)
[2017-08-17] MEDS: MONTELUKAST 10 MG TAB PO SCH (20:01)
[2017-08-17] MEDS: ENOXAPARIN 30 MG/0.3 ML SYRINGE SQ SCH (20:02)
--- NOTE | 2017-08-18 00:57 | P.PN ---
Subjective Progress Note Date: 08/17/17 Principal diagnosis: TIA Patient is a 51-year-old female with a known history of asthma fibromyalgia and seizure disorder came to the hospital with complaints of slurred speech and left facial droop along with dizziness. Patient says that her symptoms started on Friday and the patient was not feeling good. Patient went to see his primary care physician and was recommended to go to ER. Patient has been tripping and stumbling along with slurred speech. Denied any previous history of CVA/TIA. No complaints of chest pain or shortness of breath. 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 Patient also says that sometimes her heart racing of fast and night. CT head showed no acute intracranial process EKG showed normal sinus with sinus arrhythmia 08/14/2017 Patient does not have any weakness or facial droop today. Neurological symptoms had resolved. Patient was seen by neurology. Otherwise patient did complain of some catching up feeling when she swallows in the throat. Also complaining of some blurred vision as well patient is being continued on aspirin. No other acute overnight issues. Carotid duplex and 2-D echocardiogram were essentially negative studies. 08/15/2017 Patient says that she had a worsening left lower extremity and approximately weakness this morning. Neurology recommended to get MRI/MRA. Otherwise patient is ALLERGIC to iodine contrast oral and IV dye. Continued on PT OT and rehab consult has been placed. No fever no chills. No chest pain or shortness of breath. 08/16/2017 Patient says that her left-sided strength is better. Says that her leg is still weak. Otherwise neurologic workup including MRI/MRA of the head and CT angiogram is negative. Patient denied any difficulty swallowing. No fever no chills. Patient was evaluated by PT OT and possible transfer to rehab on Friday. 08/17/2017 Patient's left-sided weakness is much improved now. Part spinning and physical therapy. Anticipate discharge to rehab tomorrow. Neurologic workup has been negative so far. Otherwise patient is hemodynamically stable. All other review of systems negative for the above Current medications reviewed Objective - Vital Signs Vital signs: Vital Signs Temp 97.3 F L 08/17/17 08:00 Pulse 76 08/17/17 12:00 Resp 17 08/17/17 04:00 BP 94/61 08/17/17 12:00 Pulse Ox 98 08/17/17 12:00 Intake & Output 08/16/17 08/17/17 08/17/17 18:59 06:59 18:59 Intake Total 860 200 100 Balance 860 200 100 Weight 72.7 kg Intake: Oral 860 200 100 Other: Voiding Method Toilet # Voids 3 1 - Exam PHYSICAL EXAMINATION: Patient is lying in the bed comfortably, no acute distress, awake alert and oriented.. HEENT: Normocephalic. Neck is supple. Pupils reactive. Nostrils clear. Oral cavity is moist. Ears reveal no drainage. Neck reveals no JVD, carotid bruits, or thyromegaly. CHEST EXAMINATION: Trachea is central. Symmetrical expansion. Lung todd clear to auscultation and percussion. CARDIAC: Normal S1, S2 with no gallops. No murmurs ABDOMEN: Soft. Bowel sounds normal. No organomegaly. No abdominal bruits. Extremities: reveal no edema. No clubbing or cyanosis Neurologically awake, alert, oriented x3 with well-coordinated movements. Left- sided minimal weakness. Skin: No rash or skin lesions. Psychiatric: Coperative. Nonsuicidal Musculoskeletal: No joint swelling or deformity. Normal range of motion. - Labs CBC & Chem 7: 08/17/17 06:27 08/17/17 06:27 Labs: Abnormal Lab Results - Last 24 Hours (Table) 08/17/17 Range/Units 06:27 Carbon Dioxide 21 L (22-30) mmol/L BUN 34 H (7-17) mg/dL Assessment and Plan Assessment: Left facial droop with slurred speech and unsteady gait likely due to TIA. Possible CVA. CT head is negative for any acute process Asthma stable Fibromyalgia History of Gilbert's syndrome syndrome Lumbar disc degenerative disease Depression and anxiety History of seizure disorder DVT prophylaxis Plan: Patient will be continued on aspirin 325 mg by mouth daily. CT head negative. 2-D echocardiogram and carotid duplex were done. MRI/MRA showed no acute process. Neurology has seen the patient. PT OT and possible transfer to rehab. Time with Patient: Greater than 30
[2017-08-18] MEDS: ASPIRIN 325 MG TAB PO SCH (07:42)
[2017-08-18] MEDS: GABAPENTIN 300 MG CAP PO SCH ×2 (07:42→21:23)
[2017-08-18] MEDS: ENOXAPARIN 30 MG/0.3 ML SYRINGE SQ SCH (21:23)
[2017-08-18] MEDS: MONTELUKAST 10 MG TAB PO SCH (21:23)
[2017-08-19 01:06] VITALS: RESP 16
--- NOTE | 2017-08-19 02:05 | P.DS ---
Providers Date of admission: 08/12/17 20:54 Expected date of discharge: 08/18/17 Attending physician: Will Ortega Consults: 08/14/17 14:35 Consult Physician Routine Consulting Provider: Coty Mcgovern Consult Reason/Comments: CVA Do you want consulting provider notified?: Yes 08/15/17 14:28 Consult Physician Routine Consulting Provider: Romain Yanes Consult Reason/Comments: eval for inpatient rehab Do you want consulting provider notified?: Yes Primary care physician: [facility] Course: Discharge diagnosis Left facial droop with slurred speech and unsteady gait likely due to TIA. Possible CVA. Slurred speech, facial droop is resolved. Patient is still having slight left upper activity weakness and lower extremities weakness compared to the right side. CT head 2 negative for any acute process. Other neurologic workup including MRI/MRA is negative as well. Patient was seen by neurology. Asthma stable Fibromyalgia History of Gilbert's syndrome syndrome Lumbar disc degenerative disease Depression and anxiety History of seizure disorder DVT prophylaxis Hospital course Patient is a 51-year-old female with a known history of asthma fibromyalgia and seizure disorder came to the hospital with complaints of slurred speech and left facial droop along with dizziness. Patient says that her symptoms started on Friday and the patient was not feeling good. Patient went to see his primary care physician and was recommended to go to ER. Patient has been tripping and stumbling along with slurred speech. Denied any previous history of CVA/TIA. No complaints of chest pain or shortness of breath. 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 Patient also says that sometimes her heart racing of fast and night. CT head showed no acute intracranial process EKG showed normal sinus with sinus arrhythmia 08/14/2017 Patient does not have any weakness or facial droop today. Neurological symptoms had resolved. Patient was seen by neurology. Otherwise patient did complain of some catching up feeling when she swallows in the throat. Also complaining of some blurred vision as well patient is being continued on aspirin. No other acute overnight issues. Carotid duplex and 2-D echocardiogram were essentially negative studies. 08/15/2017 Patient says that she had a worsening left lower extremity and approximately weakness this morning. Neurology recommended to get MRI/MRA. Otherwise patient is ALLERGIC to iodine contrast oral and IV dye. Continued on PT OT and rehab consult has been placed. No fever no chills. No chest pain or shortness of breath. 08/16/2017 Patient says that her left-sided strength is better. Says that her leg is still weak. Otherwise neurologic workup including MRI/MRA of the head and CT angiogram is negative. Patient denied any difficulty swallowing. No fever no chills. Patient was evaluated by PT OT and possible transfer to rehab on Friday. 08/17/2017 Patient's left-sided weakness is much improved now. Part spinning and physical therapy. Anticipate discharge to rehab tomorrow. Neurologic workup has been negative so far. Otherwise patient is hemodynamically stable. Patient was continued on aspirin 325 mg by mouth daily. CT head negative. 2-D echocardiogram and carotid duplex were done. 2-D echo showed normal ejection fraction and no wall motion abnormalities. Carotid duplex showed no significant stenosis. Patient underwent head and neck MRI/MRA showed no acute process. Neurology has seen the patient. All the neurologic workup has been negative. Patient is symptomatically improved with increased left upper extremities strength in lower extremities strength. PT OT has seen the patient and patient would benefit from rehab transfer. Since the patients neurologic workup is essentially negative, recommended hematology follow-up for further evaluation as well. D-dimer is negative. Otherwise patient is medically stable to be transferred to rehab. Discharge physical examination PHYSICAL EXAMINATION: Patient is lying in the bed comfortably, no acute distress, awake alert and oriented.. HEENT: Normocephalic. Neck is supple. Pupils reactive. Nostrils clear. Oral cavity is moist. Ears reveal no drainage. Neck reveals no JVD, carotid bruits, or thyromegaly. CHEST EXAMINATION: Trachea is central. Symmetrical expansion. Lung todd clear to auscultation and percussion. CARDIAC: Normal S1, S2 with no gallops. No murmurs ABDOMEN: Soft. Bowel sounds normal. No organomegaly. No abdominal bruits. Extremities: reveal no edema. No clubbing or cyanosis Neurologically awake, alert, oriented x3 with well-coordinated movements. Patient does have slight weakness in the left upper extremities and lower extremities compared right Skin: No rash or skin lesions. Psychiatric: Cooperative. Nonsuicidal Musculoskeletal: No joint swelling or deformity. Normal range of motion. Vital Signs - 24 hr 08/17/17 08/17/17 08/18/17 16:00 20:15 00:00 Temperature 98.2 F Pulse Rate [ 75 71 84 Pulse Oximetery ] Respiratory 16 16 Rate Blood Pressure 113/67 116/62 105/68 [Right Arm] O2 Sat by Pulse 95 97 97 Oximetry 08/18/17 08/18/17 08/18/17 05:00 07:43 11:42 Temperature 97.4 F L 98 F 97.1 F L Pulse Rate [ 59 L 77 63 Pulse Oximetery ] Respiratory 16 18 18 Rate Blood Pressure 108/64 97/58 98/71 [Right Arm] O2 Sat by Pulse 96 97 97 Oximetry Total time taken greater than 35 minutes including 18 minutes for counseling and coordination of care. Patient Condition at Discharge: Good Plan - Discharge Summary Discharge Rx Participant: No New Discharge Prescriptions: New Aspirin 325 mg PO DAILY #30 tab Continue Budesonide-Formot 160-4.5 Mcg [Symbicort 160-4.5 Mcg Inhaler] 2 puff INHALATION RT-BID #1 inh Montelukast Sodium [Singulair] 10 mg PO HS #30 tab Ergocalciferol (Vitamin D2) [Vitamin D2] 50,000 unit PO NOBLE Fluocinonide 0.05% Solution 1 applic TOPICAL DAILY PRN PRN Reason: SCALP Albuterol Inhaler [Ventolin Hfa Inhaler] 2 puff INHALATION RT-QID Gabapentin [Neurontin] 300 mg PO BID Discontinued Furosemide [Lasix] 20 mg PO HS Ibuprofen [Motrin] 600 mg PO Q8HR PRN PRN Reason: Pain Discharge Medication List Budesonide-Formot 160-4.5 Mcg [Symbicort 160-4.5 Mcg Inhaler] 2 puff INHALATION RT-BID #1 inh 05/26/17 [Rx] Montelukast Sodium [Singulair] 10 mg PO HS #30 tab 05/26/17 [Rx] Albuterol Inhaler [Ventolin Hfa Inhaler] 2 puff INHALATION RT-QID 08/12/17 [ History] Ergocalciferol (Vitamin D2) [Vitamin D2] 50,000 unit PO NOBLE 08/12/17 [History] Fluocinonide 0.05% Solution 1 applic TOPICAL DAILY PRN 08/12/17 [History] Gabapentin [Neurontin] 300 mg PO BID 08/12/17 [History] Aspirin 325 mg PO DAILY #30 tab 08/18/17 [Rx] Follow up Appointment(s)/Referral(s): Dilip Mcneil MD [STAFF PHYSICIAN] - 1 Week Lianna Hill MD [STAFF PHYSICIAN] - 1 Week Brian Giang MD [Primary Care Provider] - 08/25/17 2:00 pm Patient Instructions/Handouts: Ischemic Stroke (DC) Discharge Disposition: HOME SELF-CARE
--- NOTE | 2017-08-19 02:05 | P.PN ---
Subjective Progress Note Date: 08/18/17 Principal diagnosis: TIA Patient is a 51-year-old female with a known history of asthma fibromyalgia and seizure disorder came to the hospital with complaints of slurred speech and left facial droop along with dizziness. Patient says that her symptoms started on Friday and the patient was not feeling good. Patient went to see his primary care physician and was recommended to go to ER. Patient has been tripping and stumbling along with slurred speech. Denied any previous history of CVA/TIA. No complaints of chest pain or shortness of breath. 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 Patient also says that sometimes her heart racing of fast and night. CT head showed no acute intracranial process EKG showed normal sinus with sinus arrhythmia 08/14/2017 Patient does not have any weakness or facial droop today. Neurological symptoms had resolved. Patient was seen by neurology. Otherwise patient did complain of some catching up feeling when she swallows in the throat. Also complaining of some blurred vision as well patient is being continued on aspirin. No other acute overnight issues. Carotid duplex and 2-D echocardiogram were essentially negative studies. 08/15/2017 Patient says that she had a worsening left lower extremity and approximately weakness this morning. Neurology recommended to get MRI/MRA. Otherwise patient is ALLERGIC to iodine contrast oral and IV dye. Continued on PT OT and rehab consult has been placed. No fever no chills. No chest pain or shortness of breath. 08/16/2017 Patient says that her left-sided strength is better. Says that her leg is still weak. Otherwise neurologic workup including MRI/MRA of the head and CT angiogram is negative. Patient denied any difficulty swallowing. No fever no chills. Patient was evaluated by PT OT and possible transfer to rehab on Friday. 08/17/2017 Patient's left-sided weakness is much improved now. Part spinning and physical therapy. Anticipate discharge to rehab tomorrow. Neurologic workup has been negative so far. Otherwise patient is hemodynamically stable. 08/18/2017 Patient denied any new complaints today. Left-sided weakness is much improved. Awaiting to be transferred to rehab. Neurology recommended hematology consult for further evaluation since the complaint neurology workup is negative for an acute CVA. D-dimer is not elevated. Follow-up appointment with Dr. Mcneil as an outpatient. All other review of systems negative for the above Current medications reviewed Objective - Vital Signs Vital signs: Vital Signs Temp 97.5 F L 08/18/17 15:16 Pulse 61 08/18/17 15:16 Resp 18 08/18/17 15:16 BP 105/60 08/18/17 15:16 Pulse Ox 97 08/18/17 15:16 Intake & Output 08/18/17 08/18/17 08/19/17 06:59 18:59 06:59 Intake Total 240 476 Balance 240 476 Weight 72.484 kg Intake: Oral 240 476 Other: # Voids 1 1 1 - Exam PHYSICAL EXAMINATION: Patient is lying in the bed comfortably, no acute distress, awake alert and oriented.. HEENT: Normocephalic. Neck is supple. Pupils reactive. Nostrils clear. Oral cavity is moist. Ears reveal no drainage. Neck reveals no JVD, carotid bruits, or thyromegaly. CHEST EXAMINATION: Trachea is central. Symmetrical expansion. Lung todd clear to auscultation and percussion. CARDIAC: Normal S1, S2 with no gallops. No murmurs ABDOMEN: Soft. Bowel sounds normal. No organomegaly. No abdominal bruits. Extremities: reveal no edema. No clubbing or cyanosis Neurologically awake, alert, oriented x3 with well-coordinated movements. Left- sided minimal weakness. Skin: No rash or skin lesions. Psychiatric: Coperative. Nonsuicidal Musculoskeletal: No joint swelling or deformity. Normal range of motion. - Labs CBC & Chem 7: 08/17/17 06:27 08/17/17 06:27 Assessment and Plan Assessment: Left facial droop with slurred speech and unsteady gait likely due to TIA. Possible CVA. CT head is negative for any acute process Asthma stable Fibromyalgia History of Gilbert's syndrome syndrome Lumbar disc degenerative disease Depression and anxiety History of seizure disorder DVT prophylaxis Plan: Patient will be continued on aspirin 325 mg by mouth daily. CT head negative. 2-D echocardiogram and carotid duplex were done. MRI/MRA showed no acute process. Neurology has seen the patient. PT OT and possible transfer to rehab. Time with Patient: Greater than 30
[2017-08-19 06:40] VITALS: PULSE 69
[2017-08-19] MEDS: ASPIRIN 325 MG TAB PO SCH (09:13)
[2017-08-19] MEDS: GABAPENTIN 300 MG CAP PO SCH (09:13)
[2017-08-19 10:24] VITALS: BMI 31.1
[2017-08-19 11:45] VITALS: BP 112/64; TEMP 97.5
--- NOTE | 2017-08-19 15:25 | P.DS ---
Providers Date of admission: 08/12/17 20:54 Attending physician: Will Ortega Consults: 08/14/17 14:35 Consult Physician Routine Consulting Provider: Coty Mcgovern Consult Reason/Comments: CVA Do you want consulting provider notified?: Yes 08/15/17 14:28 Consult Physician Routine Consulting Provider: Romain Yanes Consult Reason/Comments: eval for inpatient rehab Do you want consulting provider notified?: Yes Primary care physician: [facility] Course: This 51-year-old woman who was admitted with the weakness and other multiple medical issues is being closely monitored. Patient is improving significantly. She'll be discharged in a stable condition with guarded prognosis for ECF rehab at this time. Total time taken time taken 35 minutes. On exam vitals are stable. Cardio S1 and S2 normal. Respiratory system clear to auscultation. Nervous system diffusely weak. Please refer to the previous dictation for list of the medications Final diagnosis #1 left facial droop possible TIA acute CVA Asthma bronchial stable Fibromyalgia Gilbert's syndrome DJD Depression and anxiety history seizure disorder Patient Condition at Discharge: Good Plan - Discharge Summary Discharge Rx Participant: No New Discharge Prescriptions: New Aspirin 325 mg PO DAILY #30 tab Continue Budesonide-Formot 160-4.5 Mcg [Symbicort 160-4.5 Mcg Inhaler] 2 puff INHALATION RT-BID #1 inh Montelukast Sodium [Singulair] 10 mg PO HS #30 tab Ergocalciferol (Vitamin D2) [Vitamin D2] 50,000 unit PO NOBLE Fluocinonide 0.05% Solution 1 applic TOPICAL DAILY PRN PRN Reason: SCALP Albuterol Inhaler [Ventolin Hfa Inhaler] 2 puff INHALATION RT-QID Gabapentin [Neurontin] 300 mg PO BID Discontinued Furosemide [Lasix] 20 mg PO HS Ibuprofen [Motrin] 600 mg PO Q8HR PRN PRN Reason: Pain Discharge Medication List Budesonide-Formot 160-4.5 Mcg [Symbicort 160-4.5 Mcg Inhaler] 2 puff INHALATION RT-BID #1 inh 05/26/17 [Rx] Montelukast Sodium [Singulair] 10 mg PO HS #30 tab 05/26/17 [Rx] Albuterol Inhaler [Ventolin Hfa Inhaler] 2 puff INHALATION RT-QID 05/01/18 [ History] Ergocalciferol (Vitamin D2) [Vitamin D2] 50,000 unit PO NOBLE 08/12/17 [History] Fluocinonide 0.05% Solution 1 applic TOPICAL DAILY PRN 08/12/17 [History] Gabapentin [Neurontin] 300 mg PO BID 08/12/17 [History] Aspirin 325 mg PO DAILY #30 tab 08/18/17 [Rx] Follow up Appointment(s)/Referral(s): Dilip Mcneil MD [STAFF PHYSICIAN] - 1 Week Lianna Hill MD [STAFF PHYSICIAN] - 1 Week Brian Giang MD [Primary Care Provider] - 08/25/17 2:00 pm Patient Instructions/Handouts: Ischemic Stroke (DC) Discharge Disposition: HOME SELF-CARE
== END 2017-08-19 15:57 | DRG 69 ==
LOC: EC 18:48 → 6SEL 20:54
PROVIDERS: ADMIT Internal Medicine; ATTEND Internal Medicine
DX: G45.9 Transient cerebral ischemic attack, unspecified (principal); G81.94 Hemiplegia, unspecified affecting left nondominant side; E80.4 Gilbert syndrome; F32.9 Major depressive disorder, single episode, unspecified; F41.9 Anxiety disorder, unspecified; G40.909 Epilepsy, unspecified, not intractable, without status epilepticus; J45.909 Unspecified asthma, uncomplicated; M19.90 Unspecified osteoarthritis, unspecified site; M51.36 Other intervertebral disc degeneration, lumbar region; M79.7 Fibromyalgia; Z79.51 Long term (current) use of inhaled steroids; Z79.82 Long term (current) use of aspirin; Z79.899 Other long term (current) drug therapy; Z80.8 Family history of malignant neoplasm of other organs or systems; Z81.8 Family history of other mental and behavioral disorders; Z82.62 Family history of osteoporosis; Z83.3 Family history of diabetes mellitus; Z90.710 Acquired absence of both cervix and uterus; Z91.041 Radiographic dye allergy status; Z79.1 Long term (current) use of non-steroidal anti-inflammatories (NSAID); Z88.5 Allergy status to narcotic agent; Z88.8 Allergy status to other drugs, medicaments and biological substances; R47.81 Slurred speech; R29.810 Facial weakness; H53.8 Other visual disturbances; R29.700 NIHSS score 0
CPT/HCPCS: 36415; 70450; 70544; 70547; 70551; 80048; 80061; 83036; 83880; 84484; 85025; 85379; 93005; 93306; 93880; 94760; 96360; 99285

== ENCOUNTER 2018-11-01 18:11 | Observation (INO) | payer BC, OTHER ==
[2018-11-01] MEDS ORDERED: SODIUM CHLORIDE 0.9% 1,000 ML IV STA (18:38)
[2018-11-01] MEDS ORDERED: NITROGLYCERIN SL TABS 0.4 MG TAB SUBLINGUAL STA (18:38)
[2018-11-01] MEDS ORDERED: ASPIRIN 81 MG PO STA (18:38)
--- NOTE | 2018-11-01 18:58 | ED ---
Chest Pain HPI - General Chief Complaint: Chest Pain Stated Complaint: Chest pain Time Seen by Provider: 11/01/18 18:30 Source: patient Mode of arrival: ambulatory Limitations: no limitations - History of Present Illness Initial Comments: 53-year-old female patient presents to the emergency department today for evaluation of left-sided chest pain. Patient states approximately 30 minutes ago she was sitting in a movie theater when she had sudden onset of sharp stabbing left-sided chest pain radiating up into her neck into her left shoulder. Patient states she did become short of breath, nauseated, and dizzy with this. Patient states that the pain is still present currently rating it a 7 out of 10 on the pain scale. Patient denies taking any medication for her symptoms. Patient states she has been having some swelling to the bilateral lower extremities worse on the left side. Denies having previous symptoms similar to this. Patient states she has had TIAs in the past. She denies any personal cardiac history but states that her brother and sister both have coronary artery disease. Patient denies any recent rash, fever, chills, abdomin al pain, diarrhea, constipation, back pain, numbness, tingling, hematuria, dysuria, urinary urgency, urinary frequency, headache, visual changes, or any other complaints. - Related Data Home Medications Medication Instructions Recorded Confirmed Latanoprost/Pf [Latanoprost 0.005% 1 drop BOTH EYES HS 11/01/18 11/01/18 Eye Drop] Allergies Allergy/AdvReac Type Severity Reaction Status Date / Time codeine Allergy Unknown Verified 11/01/18 18:27 Iodinated Contrast- Oral and Allergy Dyspnea Verified 11/01/18 18:27 IV Dye levetiracetam [From Keppra] Allergy Unknown Verified 11/01/18 18:27 morphine Allergy Unknown Verified 11/01/18 18:27 tramadol Allergy Unknown Verified 11/01/18 18:27 heparin AdvReac Swelling Verified 11/01/18 18:27 tape Allergy Unknown Uncoded 11/01/18 18:16 Review of Systems ROS Statement: Those systems with pertinent positive or pertinent negative responses have been documented in the HPI. ROS Other: All systems not noted in ROS Statement are negative. EKG Findings - EKG Comments: EKG Findings:: EKG obtained at 1823 shows sinus rhythm with a short NC interval. Ventricular rate is 66, NC interval 110, QRS duration 86, QT 406, QTc 425. No evidence of ST elevation or depression. Past Medical History Past Medical History: Asthma, Fibromyalgia, Musculoskeletal Disorder, Seizure Disorder Additional Past Medical History / Comment(s): Diverticulitis, Gilbert's syndrome, Osteoprosis, Seizures > 4 years ago, wears contacts, lumbar DDD/DJD History of Any Multi-Drug Resistant Organisms: None Reported Past Surgical History: Section, Cholecystectomy, Hysterectomy, Tonsillectomy Additional Past Surgical History / Comment(s): Partial hysterectomy Past Anesthesia/Blood Transfusion Reactions: No Reported Reaction Past Psychological History: Depression Smoking Status: Never smoker Past Alcohol Use History: None Reported Past Drug Use History: None Reported - Past Family History Father Additional Family Medical History / Comment(s): Committed suicide. Cancer, DM, heart disease, depression on his side of the family. Most of father's side of a type of cancer. Mother Family Medical History: Cancer Additional Family Medical History / Comment(s): Skin cancer, heart problems, depression, DM. Committed suicide. Mother's sister (aunt) of brain cancer. Sister(s) Family Medical History: Cancer, Liver Disease, Renal Disease Additional Family Medical History / Comment(s): of cancer. Another sister has liver failure. Another sister has heart problems. "Baby sister" has osteoporosis. Little sister has kidney problems. Brother(s) Family Medical History: Cancer Additional Family Medical History / Comment(s): Older brother committed suicide/had skin cancer. Little brother has heart problems w/ 2 surgeries/depression/mental issues. General Exam Limitations: no limitations General appearance: alert, in no apparent distress, other (Physical well- developed, well-nourished adult female patient in no acute distress. Vital signs upon presentation are temperature 98.2F, pulse 77, respirations 16, blood pressure 151/95, pulse ox 99% on room air.) Eye exam: Present: normal appearance, PERRL, EOMI. Absent: scleral icterus, conjunctival injection, periorbital swelling ENT exam: Present: normal exam, normal oropharynx, mucous membranes moist Respiratory exam: Present: normal lung sounds bilaterally. Absent: respiratory distress, wheezes, rales, rhonchi, stridor Cardiovascular Exam: Present: regular rate, normal rhythm, normal heart sounds. Absent: systolic murmur, diastolic murmur, rubs, gallop, clicks GI/Abdominal exam: Present: soft, normal bowel sounds. Absent: distended, tenderness, guarding, rebound, rigid Neurological exam: Present: alert, oriented X3, CN II-XII intact Psychiatric exam: Present: normal affect, normal mood Skin exam: Present: warm, dry, intact, normal color. Absent: rash Course Vital Signs 11/01/18 11/01/18 11/01/18 18:14 19:11 19:16 Temperature 98.2 F Pulse Rate 77 75 77 Respiratory 16 18 20 Rate Blood Pressure 151/95 140/89 121/84 O2 Sat by Pulse 99 98 98 Oximetry 11/01/18 19:55 Temperature Pulse Rate 56 L Respiratory 20 Rate Blood Pressure 128/83 O2 Sat by Pulse 97 Oximetry Chest Pain MDM - [facility] RADIOLOGY:Two-view x-ray of the chest is obtained. Report was reviewed in its entirety. Impression by Dr. Lainez shows normal chest with no change. MDM: 53-year-old female patient presented to the emergency department today for evaluation of left-sided chest pain radiating to the left neck and left shoulder. With this patient had shortness of breath, dizziness, and nausea. She reports sweats as well. Symptoms started approximately 30 minutes prior to arrival. Physical examination is unremarkable. Lungs are clear to auscultation with good air movement. Labs reviewed and are unremarkable. Initial troponin negative. Patient has personal history of TIA and family history of coronary artery disease. Given risk factors and symptoms she will be admitted to the hospital for observation and cardiology evaluation. Disposition Clinical Impression: Chest pain Disposition: ADMITTED IP TO THIS [facility] Condition: Serious Referrals: Brian Giang MD [Primary Care Provider] - 1-2 days Decision to Admit Reason: Admit from EC Decision Date: 11/01/18 Decision Time: 20:14
[2018-11-01 19:07] LABS: Basophils % (A) 0 %; Eosinophils # (A) 0.1 k/uL (0-0.7); Eosinophils % (A) 2 %; HCT 39.4 % (34.0-46.0); HGB 13.4 gm/dL (11.4-16.0); Lymphocytes % (A) 28 %; MCH 29.3 pg (25.0-35.0); MCV 86.1 fL (80.0-100.0); Mean Platelet Volume 7.6; Monocytes # (A) 0.4 k/uL (0-1.0); Monocytes % (A) 5 %; Neutrophils # (A) 4.4 k/uL (1.3-7.7); Neutrophils % (A) 62 %; Platelet Count 290 k/uL (150-450); RBC 4.57 m/uL (3.80-5.40); RDW 13.3 % (11.5-15.5); WBC 7.1 k/uL (3.8-10.6)
[2018-11-01 19:23] LABS: D-Dimer 0.41 mg/L FEU (<0.60); INR 0.9 (<1.2); Partial Thromboplastin Time 23.5 sec (22.0-30.0); Prothrombin Time 9.7 sec (9.0-12.0)
--- NOTE | 2018-11-01 19:23 | XR ---
EXAMINATION TYPE: XR chest 2V DATE OF EXAM: 11/01/2018 COMPARISON: 05/25/2017 HISTORY: Chest pain TECHNIQUE: Frontal and lateral views of the chest are obtained. FINDINGS: Heart and mediastinum are normal. Lungs are clear. Diaphragm is normal. Bony thorax is nor mal. There are chest leads. IMPRESSION: Normal chest. No change.
[2018-11-01 19:24] LABS: Albumin 4.9 g/dL (3.5-5.0); Magnesium 2.2 mg/dL (1.6-2.3); Potassium 3.9 mmol/L (3.5-5.1); Total Bilirubin 1.4 mg/dL (0.2-1.3); Total Protein 8.5 g/dL (6.3-8.2)
[2018-11-01] MEDS ORDERED: NITROGLYCERIN SL TABS 0.4 MG TAB SUBLINGUAL PRN (20:10)
[2018-11-01] MEDS ORDERED: MORPHINE SULFATE 2 MG/ML SYRINGE IVP PRN (21:57)
[2018-11-01] MEDS ORDERED: ONDANSETRON 4 MG/2 ML VIAL IVP PRN (21:57)
[2018-11-02 07:24] LABS: Cholesterol 195 mg/dL (<200); HDL Cholesterol 45 mg/dL (40-60); LDL Cholesterol,Calculated 108 mg/dL (0-99); Triglycerides 211 mg/dL (<150)
[2018-11-02 07:38] VITALS: BP 96/63; PULSE 55; RESP 16; TEMP 97.7
--- NOTE | 2018-11-02 07:45 | HP ---
HISTORY AND PHYSICAL DATE OF SERVICE: 11/01/2018 CHIEF COMPLAINT: Chest pain. HISTORY OF PRESENT ILLNESS: This 53-year-old woman with a past medical history of multiple medical problems including history of asthma, fibromyalgia, DJD, seizure disorder, history of Gilbert's syndrome, history of osteoporosis, history of depression and history of seasonal depression being followed by Dr. Giang in the outpatient setting was admitted with complaints of chest pain. The patient initially had a left-sided chest pain. Subsequently patient had pressure type of sensation and reported chest radiating to the neck and as well as to the epigastrium and also right side. The patient came to [facility] and admitted for further evaluation and treatment. Patient also had complaints of some nausea also. The patient also complaining of intermittent swelling of the left . The D-dimer is negative at this time. The patient admitted for further evaluation and treatment. There is no history of any fever or rigors. No history of headache, loss of consciousness or seizures. Creatinine is elevated 1.12. PAST MEDICAL HISTORY: History of asthma, fibromyalgia, musculoskeletal disorder, seizure disorder, diverticulitis, history of Gilbert syndrome, osteoporosis, cholecystectomy, history of depression, history of seasonal depression. MEDICATIONS: Home medication: Latanoprost 0.005% q.h.s. ALLERGIES: CODEINE, IODINATED CONTRAST DYES, KEPPRA, MILK CONTAINING PRODUCTS, ULTRAM, HEPARIN, MORPHINE, TAPE. FAMILY HISTORY: History of cancer, history of suicide, diabetes mellitus, heart disease, depression, coronary artery disease. SOCIAL HISTORY: No history of smoking. No history of alcohol intake. REVIEW OF SYSTEMS: ENT: No diminished hearing or diminished vision. CARDIOVASCULAR SYSTEM: As mentioned earlier. RESPIRATORY SYSTEM: As mentioned earlier. GI: No nausea. : No dysuria. NERVOUS SYSTEM: No numbness or weakness. ALLERGY/IMMUNOLOGY: History of asthma. MUSCULOSKELETAL: As mentioned earlier. HEMATOLOGY/ONCOLOGY: No history of anemia. ENDOCRINE: No history of diabetes, hypothyroidism. CONSTITUTIONAL: as mentioned earlier. DERMATOLOGY: Negative. RHEUMATOLOGY: Negative. PSYCHIATRY: As mentioned earlier. PHYSICAL EXAMINATION: The patient is alert and oriented x3. Pulse is 53, blood pressure 115/76, respiration 18, temperature 97.6, pulse ox 99% on 2 L. HEENT: Conjunctivae normal. Oral mucosa moist. NECK: No jugular venous distention. No carotid bruit. No lymph node enlargement. CARDIOVASCULAR: S1, S2 muffled. RESPIRATORY: Breath sounds diminished at the bases. No rhonchi. No crackles. ABDOMEN: Soft, nontender. No mass palpable. LEGS: No edema, no swelling. NERVOUS SYSTEM: Higher function as mentioned earlier. Moves all 4 limbs. No focal motor or sensory deficits. LYMPHATICS: No lymphadenopathy of the neck, axillae or groin. SKIN: No ulcer, rash or bleeding. JOINTS: No active deforming arthropathy. LABS: WBC 7.1, hemoglobin is 13.4, otherwise creatinine is 1.12, glucose 137, total bilirubin 1.4. ASSESSMENT: 1. Chest pain, possible unstable angina. 2. Increased creatinine with possible mild acute renal failure. 3. History of asthma. 4. Family history of coronary artery disease. 5. History of fibromyalgia. 6. History of degenerative joint disease. 7. History of seizure disorder. 8. History of diverticulitis. 9. History of Gilbert syndrome. 10.History of osteoporosis. 11.History of seizure disorder. 12.History of cholecystectomy. 13.History of depression. 14.NO CODE, NO CPR, NO VENT. RECOMMENDATIONS AND DISCUSSION: This 53-year-old woman with multiple complex medical issues, at this time I recommend to continue current medication, continue symptomatic treatment. Resume the home medications. N.p.o. after midnight. Cardiology consultation. Possible stress test. Resume the home medications. We will follow the patient closely. Prognosis guarded. Further recommendations to follow. A copy of dictation forwarded to Dr. Giang who is the primary physician. MMMELISSA / KIRSTENN: [id number] / KEYLA
--- NOTE | 2018-11-02 08:15 | CONS ---
CONSULTATION Key Wheeler is a 53-year-old lady with a family history of premature CAD in her brother and sister. She has an element of anxiety. This lady came into the hospital yesterday because she was at a movie theater watching a movie, then she felt some chest pain and came in. Her troponins 2 sets are normal. She is resting comfortably without symptoms. She does not take any regular medications and carries a diagnosis of TIA that was apparently diagnosed in August of 2017. She came with symptoms suggestive of TIA, had complete resolution of neurological deficit. Her MRA as well as MRI of the brain did not reveal any significant abnormalities. However she has not taken any medicines. She is not a smoker. She comes in with symptoms of chest pain which had resolved. Her EKG revealed sinus mechanism with a nonspecific T-wave flattening. She is resting comfortably without symptoms. PAST MEDICAL HISTORY: Past medical history is remarkable for bronchial asthma, fibromyalgia, question of TIA, history of Gilbert syndrome, history of cholecystectomy and some depression. MEDICATIONS: Medications at home include she does not take any medicines at home. Patient is not a smoker. PHYSICAL EXAMINATION: On examination, blood pressure is 108/70, pulse rate 55 per minute, regular. HEENT: Unremarkable. Fundus was not examined by me. Neck is supple. No JVD. I do not hear a carotid bruit. There is no thyromegaly. Heart exam reveals S1, S2 heard normally in all areas without a rub., murmur or gallop. Lungs are clear. Abdomen is soft, nontender. Lower extremities reveal normal pulses. No edema. Central nervous system is normal. EKG revealed sinus mechanism, no significant abnormalities. IMPRESSION: 1. Atypical chest pain. 2. Question of transient ischemic attack in the past, which has not been substantiated. No recurrence of symptoms. Patient has stopped taking aspirin. RECOMMENDATIONS: I am recommending a stress echo to be performed today and if this is normal she can be discharged. Discussed my thoughts in detail with the patient. Thank you very much for the consult. MMODL / IJN: [id number] /
[2018-11-02] MEDS ORDERED: ASPIRIN 325 MG TAB PO SCH (09:00)
[2018-11-02] MEDS ORDERED: ATORVASTATIN 10 MG TAB PO SCH (09:00)
--- NOTE | 2018-11-02 13:55 | ECHOS ---
STRESS ECHOCARDIOGRAM INDICATIONS: Chest pain. BASELINE HEART RATE: 55 BASELINE BLOOD PRESSURE: 149/52 MAXIMUM HEART RATE: 165 MAXIMUM BLOOD PRESSURE: 183/76 85% MPHR: 142 100% MPHR: 167 METS: 9.1 MAXIMUM STAGE REACHED: 3 TOTAL EXERCISE TIME: 7:30 CLINICAL INFORMATION: Baseline EKG revealed normal sinus rhythm with poor R-wave progression over precordial leads. Patient walked on a standard Eric protocol for 7.5 minutes, achieved a maximal heart rate of 165 minutes, which is more than 85% of predicted maximum. She developed some fatigue and shortness of breath but did not have any angina or arrhythmia. EKG did not reveal any ST-segment changes to indicate ischemia. Baseline echo images revealed normal wall motion and wall thickening of all segments. At peak exercise there was good augmentation of left wall motion and wall thickening of all segments suggesting that there is no evidence of stress-induced ischemia on this study. IMPRESSION: 1. Fair exercise capacity with a negative stress test by EKG criteria. 2. Normal stress echocardiogram. MMODL / IJN: [id number] /
--- NOTE | 2018-11-02 16:31 | DS ---
DISCHARGE SUMMARY DATE OF SERVICE: 11/02/2018. FINAL DIAGNOSES: 1. Chest pain. Myocardial infarction ruled out. Possibly nonspecific, noncardiac chest pain with negative stress echo. 2. Increased creatinine with possible mild acute renal failure present on admission. 3. History of asthma. 4. Hyperlipidemia. 5. Family history of coronary artery disease. 6. History of fibromyalgia. 7. History of degenerative joint disease. 8. History of seizure disorder. 9. History of diverticulitis. 10.History of Gilbert's syndrome. 11.History of osteoporosis. 12.History of seizure disorder. 13.History of cholecystectomy. 14.History of depression. 15.NO CODE, NO CPR. DISCHARGE DISPOSITION: The patient will be discharged in stable condition with guarded prognosis. HISTORY OF PRESENT ILLNESS: This 53-year-old woman with a past medical history of multiple medical problems was admitted with chest pain. Myocardial infarction ruled out. Cardiology saw the patient. Stress echo was done which was normal. The patient also had a high cholesterol with triglycerides 211 and LDL 198. Patient was treated symptomatically. Patient improved significantly. Patient discharged home in stable with guarded prognosis. Recommend close followup in the outpatient setting regarding above-mentioned medications and continued followup labs also. On exam, vital signs are stable. Cardiovascular: S1, S2. Abdomen soft. Nervous system: No focal deficits. DISCHARGE MEDICATIONS AND INSTRUCTIONS: 1. Discharge diet is cardiac diet. 2. Activity limited until followup. 3. Follow up with Dr. Giang in 1-2 days. 4. Follow up with Cardiology as recommended. DISCHARGE MEDICATIONS: 1. Latanoprost eyedrops 1 drop both eyes q.h.s. 2. Lipitor 10 mg q.h.s. Once again, the patient will be discharged in stable condition with guarded prognosis. MMODL / IJN: [id number] /
[2018-11-02] MEDS ORDERED: LATANOPROST 0.005% OPHTH DROPS 2.5 ML BTL BOTH EYES SCH (21:00)
== END 2018-11-02 14:37 ==
LOC: EC 18:11 → 1SOBS 21:36
PROVIDERS: ADMIT Internal Medicine; ATTEND Internal Medicine
DX: R07.89 Other chest pain (principal); R79.89 Other specified abnormal findings of blood chemistry; M79.7 Fibromyalgia; J45.909 Unspecified asthma, uncomplicated; G40.909 Epilepsy, unspecified, not intractable, without status epilepticus; K57.90 Diverticulosis of intestine, part unspecified, without perforation or abscess without bleeding; M19.90 Unspecified osteoarthritis, unspecified site; E80.4 Gilbert syndrome; F32.9 Major depressive disorder, single episode, unspecified; E78.00 Pure hypercholesterolemia, unspecified; E78.5 Hyperlipidemia, unspecified; M81.0 Age-related osteoporosis without current pathological fracture; M51.36 Other intervertebral disc degeneration, lumbar region; M47.816 Spondylosis without myelopathy or radiculopathy, lumbar region; Z79.899 Other long term (current) drug therapy; Z88.5 Allergy status to narcotic agent; Z88.8 Allergy status to other drugs, medicaments and biological substances; Z91.041 Radiographic dye allergy status; Z91.048 Other nonmedicinal substance allergy status; Z90.49 Acquired absence of other specified parts of digestive tract; Z90.711 Acquired absence of uterus with remaining cervical stump; Z86.73 Personal history of transient ischemic attack (TIA), and cerebral infarction without residual deficits; Z97.3 Presence of spectacles and contact lenses; Z83.3 Family history of diabetes mellitus; Z82.49 Family history of ischemic heart disease and other diseases of the circulatory system; Z81.8 Family history of other mental and behavioral disorders; Z82.62 Family history of osteoporosis; Z83.79 Family history of other diseases of the digestive system; Z80.8 Family history of malignant neoplasm of other organs or systems; Z80.9 Family history of malignant neoplasm, unspecified; Z84.1 Family history of disorders of kidney and ureter; Z66 Do not resuscitate
CPT/HCPCS: 96374; 96361; 99285; 36415; 93005; 93351; 85379; 83880; 80061; 80053; 83735; 84484 ×2; 85025; 85610; 85730; 71046; G0378 ×2; J2270

== ENCOUNTER → 2023-12-29 | Outpatient (CLI) | payer OTHER ==
--- NOTE | 2023-12-29 13:15 | XR ---
EXAMINATION TYPE: XR hand complete RT DATE OF EXAM: 12/29/2023 COMPARISON: None HISTORY: Strain flexor muscles TECHNIQUE: 3 view right hand FINDINGS: No acute fracture or dislocation evident. Joint spaces are preserved. Soft tissues appear n ormal. There may be an old avulsion of the posterior distal phalanx index finger on the lateral proje ction. Correlate with location of patient's pain Follow up exams can be performed 7-10 days from acute trauma for continued pain. IMPRESSION: 1. Suspected old for avulsion from the dorsal proximal portion distal phalanx index finger. Correlat e with location of the patient's pain. 2. Displaced fractures are not otherwise evident. [facility], , 12/29/2023 1:13 PM
--- NOTE | 2023-12-29 13:17 | XR ---
EXAMINATION TYPE: XR wrist complete RT DATE OF EXAM: 12/29/2023 COMPARISON: None HISTORY: Flexor strain TECHNIQUE: 4 view right wrist FINDINGS: No acute fracture or dislocation evident. Joint spaces are preserved. Soft tissues are norm al. Follow up exams can be performed 7-10 days from acute trauma for continued pain. If there is pain at the anatomic snuff box, nuclear medicine bone scan could be performed. IMPRESSION: 1. No acute osseous abnormality right wrist [facility], , 12/29/2023 1:14 PM
== END | disposition home or self-care (01) ==
LOC: RADXRMAIN 12:51
PROVIDERS: ATTEND Emergency Medicine
DX: S56.119A Strain of flexor muscle, fascia and tendon of finger of unspecified finger at forearm level, initial encounter

== ENCOUNTER → 2024-10-02 | Outpatient (CLI) | payer OTHER ==
--- NOTE | 2024-10-03 09:01 | MR ---
EXAMINATION TYPE: MR knee LT wo con DATE OF EXAM: 10/02/2024 8:33 PM COMPARISON: None. CLINICAL INDICATION: Female, 59 years old with history of M25.562 PAIN LT KNEE, left knee pain due to fall injury on 09-05-24 IV Contrast: cc (None if empty) TECHNIQUE: Multiplanar, multisequence imaging of the left knee is performed without IV contrast. FINDINGS: There is a moderate joint effusion. There is mild edema in the anterior subcutaneous soft tissues There is increased signal intensity within the bone marrow of the tibial plateau greatest in the late ral aspect of the tibial plateau. There is suggestion of some microfracturing but there is no displac ed fracture or depression of the lateral tibial plateau. There is a complete full-thickness tear of the medial collateral ligament and a small vertical tear i n the adjacent medial aspect of the body of the medial meniscus. The lateral meniscus is intact. Lateral collateral ligament and cruciate ligaments are intact. The quadriceps and patellar tendons and anterior fat pads are normal. There is mild thinning of the patellar cartilage indicating mild osteoarthritis patellofemoral compar tment. The articular cartilages of the medial lateral compartments are well preserved. IMPRESSION: 1. Moderate joint effusion and soft tissue edema. 2. Full-thickness tear of the medial collateral ligament and probable small vertical tear of the body of the medial meniscus. 3. Edema in the tibial plateau greatest in the lateral aspect with suggestion of microfractures but n o displaced fracture or compression of the tibial plateau. 4. Mild osteoarthritis of the patellofemoral compartment with mild thinning of the articular patellar cartilage. [facility], , 10/03/2024 8:59 AM
== END | disposition home or self-care (01) ==
LOC: RADMRIMAIN 20:15
PROVIDERS: ATTEND Orthopaedic Surgery
DX: S83.412A Sprain of medial collateral ligament of left knee, initial encounter (principal); M17.12 Unilateral primary osteoarthritis, left knee; W19.XXXA Unspecified fall, initial encounter